=== PATIENT | female | born 1960 | race African-American/Black ===

== ENCOUNTER → 2016-05-20 | Outpatient (CLI) | payer OTHER ==
[~2016-05-20] MED LIST: ADVAIR HFA 230M12 GM INH; ALPRAZOLAM1 M1 PO; ALPRAZOLAM1 MG PO; BENZONATATE100 MG PO; CARBAMAZEPINE200 M2 PO; COLACE100 MG PO; COZAAR 50 MG TA50 M2 PO; COZAAR100 MG PO; DUONEB 0.5 MG-33 ML INH; FIORICET 50-301 EACH PO; FIORICET 50-321 EACH PO; GEODON PO; GEODON80 MG PO; LAMICTAL XR100 MG PO; LEVAQUIN 500 M500 M4 PO; LISINOPRIL10 MG PO; LORTAB PO; MIRALAX255 GM PO; MOM OR; NORCO 10-325 T1 EACH PO; NORCO 5-325 TA1 EACH PO; NORVASC10 MG PO; OMEPRAZOLE20 MG PO; PREDNISONE 10 M10 MG PO; PREDNISONE50 MG PO; PRILOSEC 20 MG20 MG PO; PRINIVIL5 MG PO; RAZADYNE12 MG; RISPERDAL0.5 MG PO; SEROQUEL XR 20200 MG PO; SEROQUEL XR400 MG PO; SEROQUEL200 MG PO; SPIRIVA INH; VENTOLIN HFA 1818 GM INH; XANAX 0.5 MG0.5 MG PO; XOPENEX HF1 UDINHALE INH; ZPAK PO
== END ==
LOC: NUC 09:28
DX: R06.00 Dyspnea, unspecified (principal); J44.9 Chronic obstructive pulmonary disease, unspecified

== ENCOUNTER → 2016-07-22 | Outpatient (CLI) | payer OTHER ==
[~2016-07-22] VITALS: Ht 162.6 cm; Wt 60.4 kg
[~2016-07-22] MED LIST changes: +ALLERGY & CONG1 EACH PO; +FLEXERIL PO; +HYDRALAZINE 2525 MG PO; +LAMICTAL100 MG PO; +OMEPRAZOLE20 M2 PO; +ONDANSETRON HCL4 M2 PO; +RISPERDAL 3 MG T3 MG PO; +SPIRIVA18 MCG INH; +TYLENOL325 MG PO
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
[2016-07-22 14:08] VITALS: BP 124/92
== END ==
LOC: PAIN 07:14
DX: M47.817 Spondylosis without myelopathy or radiculopathy, lumbosacral region (principal); M25.859 Other specified joint disorders, unspecified hip; G89.29 Other chronic pain; J44.9 Chronic obstructive pulmonary disease, unspecified; Z87.891 Personal history of nicotine dependence; K21.9 Gastro-esophageal reflux disease without esophagitis; F32.9 Major depressive disorder, single episode, unspecified

== ENCOUNTER → 2016-07-29 | Outpatient (CLI) | payer OTHER ==
[~2016-07-29] VITALS: Ht 157.5 cm; Wt 62.1 kg
--- NOTE | ~2016-07-29 | HPC ---
[facility] [place] [address] PAIN MANAGEMENT CONSULTATION Name: JAMES LAMB Room #: REG CL Jessica#: [id number] Admission: 07/29/16 Attend Phys: Juan David Porter DO Discharge: Date of : 56 Report #: [id number] THIS REPORT FOR: //name// CC: Jenna Porter The patient is a 56-year-old female seen in consultation on 07/22/2016, diagnosed with sacroiliac dysfunction, lumbosacral spondylosis, chronic pain, neuropathic pain component. We sought authorization for bilateral SI joint injections under fluoroscopy. The patient presents to pain clinic today for prior authorized injection. She notes pain continues across the low back. She has continued to do physical therapy for pulmonary rehab. I had written a physical therapy prescription for the patient to give to her current PT asking to include home exercise regimen for SI stabilization core strength. PROCEDURE: Bilateral SI joint injection under fluoroscopy. PROCEDURE NOTE: After written and informed consent was obtained including risk of infection, nerve trauma, increased pain and weakness, the patient wishes to proceed. The patient was taken to the fluoroscopy suite, placed in the prone position. The sacroiliac joint was visualized using the C-arm, turned in an oblique fashion to align the joint. The skin overlying the area was cleansed with ChloraPrep. Skin wheal with Xylocaine was raised. A 22 gauge spinal needle was inserted into the inferior aspect of the joint. A low volume extension tubing was then attached to the needle after the stylet was removed. Negative aspiration was accomplished. 1 mL of Omnipaque was injected which showed spread within the SI joint. 40 mg triamcinolone plus 2 mL of 0.5% preservative-free bupivacaine was injected into the joint. Needle was removed. Attention was then turned to the contralateral joint which was treated in an identical fashion. After both needles were removed the prep was washed off. Two Band-Aids were applied over the puncture sites. The patient was allowed to ambulate to the recovery room, monitored for an appropriate period of time, discharged in good and stable condition. By: [id number] Juan David Porter DO /nt
[2016-07-29 10:37] VITALS: BP 135/96
== END | disposition home or self-care (01) ==
LOC: PAIN 07:12
DX: M53.3 Sacrococcygeal disorders, not elsewhere classified (principal); M47.897 Other spondylosis, lumbosacral region; G89.29 Other chronic pain; Z87.891 Personal history of nicotine dependence

== ENCOUNTER → 2016-08-26 | Outpatient (CLI) | payer OTHER ==
[~2016-08-26] VITALS: Ht 157.5 cm; Wt 60.9 kg
[~2016-08-26] MED LIST changes: +MOBIC7.5 MG PO
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
[2016-08-26 09:57] VITALS: BP 140/90
== END | disposition home or self-care (01) ==
LOC: PAIN 07:24
DX: M54.5 Low back pain (principal); J98.4 Other disorders of lung; M47.896 Other spondylosis, lumbar region; M53.3 Sacrococcygeal disorders, not elsewhere classified; G62.9 Polyneuropathy, unspecified

== ENCOUNTER → 2016-10-12 | Outpatient (CLI) | payer OTHER ==
[~2016-10-12] MED LIST changes: +ALENDRONATE SOD70 MG PO; +BENZTROPINE MES1 MG PO
== END ==
LOC: CAT 10-05 14:52
DX: R91.8 Other nonspecific abnormal finding of lung field (principal)

== ENCOUNTER 2016-10-14 19:02 | Inpatient (IN) | payer OTHER ==
[~2016-10-14] VITALS: Ht 157.5 cm; Wt 58.1 kg
--- NOTE | ~2016-10-14 | HC ---
[facility] [place] [address] CONSULTATION Name: JAMES LAMB Room #: 417-I ADM IN M.R.#: [id number] Admission: 10/14/16 Attend Phys: Donaldo Pantoja MD Discharge: Date of : 56 Report #: [id number] THIS REPORT FOR: //name// CC: Jenna Pantoja DATE OF SERVICE: 10/15/2016 GASTROENTEROLOGY CONSULTATION REASON FOR CONSULTATION: Acute colitis. BACKGROUND: The patient is a 56-year-old black female admitted through the emergency room with abdominal pain and hematochezia. She reports that with inability to have a bowel movement, on , she took magnesium citrate as she has sometimes required in the past. She subsequently developed severe diarrhea with multiple bowel movements throughout the day on and Monday with report of up to 30 stools. She noted blood in her stools, bright red in color on night. She developed abdominal pain up to 10 on a scale of 1-10, more prominent in her left lower quadrant. She does have a history of IBS, but no previous history of acute colitis. She does have a personal history of colon polyps and last underwent a colonoscopy at [facility] by Dr. Grady and reports that she was due for repeat colonoscopy possibly this year. Endoscopic report not currently available. PAST MEDICAL HISTORY: She has undergone previous hysterectomy and tubal ligation. She does have a history of hypertension, COPD, IBS, migraine headaches, anxiety, bipolar disorder, and hypertension. HOME MEDICATIONS: Cogentin 1 mg per day, alendronate one tablet each week, carbamazepine 200 mg p.o. q.i.d., amlodipine 10 mg per day, benzonatate 100 mg p.r.n. for cough, [place] p.r.n. pain, albuterol inhaler p.r.n., alprazolam 1 mg p.o. t.i.d., Fioricet one capsule p.r.n. migraine headaches, risperidone 3 mg per day, loratadine p.r.n., acetaminophen 650 mg p.o. q.8 hours, Zofran 4 mg p.o. q.8 hours, omeprazole 20 mg per day, hydralazine 50 mg per day, Lamictal 100 mg per day, Spiriva each day, and Flexeril 10 mg p.o. t.i.d. ALLERGIES: ASPIRIN, CODEINE, PHENYTOIN, and ZIPRASIDONE. SOCIAL HISTORY: She does not currently smoke cigarettes. She does drink alcohol on special occasions. REVIEW OF SYSTEMS: She has had no documented fevers or chills. She has not noted increased coughing, wheezing, or shortness of breath. She denied chest pain. She denied nausea or vomiting. GI as per HPI. She has had no increase [address] [address] CONSULTATION Name: JAMES LAMB Room #: 417-I ADM IN M.R.#: [id number] Admission: 10/14/16 Attend Phys: Donaldo Pantoja MD Discharge: Date of : 56 Report #: [id number] in weakness or joint pain. PHYSICAL EXAMINATION: GENERAL: She appears alert and in no acute distress at rest and easily conversant. VITAL SIGNS: Afebrile, blood pressure 124/80, and pulse 114. HEENT: No scleral icterus. NECK: Supple without lymphadenopathy. HEART: Heart rate tachycardic, but regular. LUNGS: Clear to auscultation. ABDOMEN: Soft, nondistended with no obvious hepatosplenomegaly or palpable mass. She does have [id number] tenderness to palpation, most prominent in the left lower quadrant without obvious rebound. Bowel sounds are active. EXTREMITIES: She has no significant peripheral edema. IV was placed on right neck as peripheral venous access has been difficult. LABORATORY STUDIES: On 10/14/2016, white blood cell count 21.6, hemoglobin 15.0 with 81 segs, 1 band, and 10 lymphs. Initial metabolic profile included BUN 18, creatinine 0.7, and glucose 126. Lactic acid on 10/14/2016 was normal at 0.9. Alkaline phosphatase was mildly elevated at [address] of the abdomen and pelvis revealed findings compatible with colitis involving the distal transverse colon down to the rectum more prominent involving the splenic flexure and proximal descending colon. She did have moderate plaquing of the aorta and iliac without aneurysm. IMPRESSION: 1. Acute colitis, most likely ischemic, less likely infectious, clinically improving. 2. Hematochezia. 3. Personal history of colon polyps. 4. Chronic constipation. 5. Leukocytosis. RECOMMENDATIONS: 1. Clear liquids. 2. Note that she has been placed on IV ciprofloxacin and metronidazole, which is very reasonable. 3. If continued clinical improvement, diet may be slowly advanced. 4. Repeat colonoscopy may be scheduled in 4-6 weeks. <ELECTRONICALLY SIGNED> By: Js Villa MD 10/16/16 0745 0914 1135 Js Villa MD /nt
--- NOTE | ~2016-10-14 | S ---
[facility] [place] [address] SURGICAL PATH RPT PROCEDURE Name: ROSAAN ALICEADIANE RONY Room #: 548-I DIS IN M.R.#: [id number] Admission: 10/14/16 Date of : 56 Discharge: 10/19/16 Report #: [id number] Path Case #: [id number] PATHOLOGY REPORT COLLECTION DATE: 10/18/2016 RECEIVED DATE: 10/18/2016 SUBMITTING PHYS: Dr. Juan Zazueta OTHER PHYS: Dr. Jose Raul Olea SPECIMEN(S) RECEIVED: A.Bx at splenic flexure to distal sigmoid B.Bx of polyp at sigmoid * * * * * * * * * * * * FINAL DIAGNOSIS: A. "Bx at splenic flexure to distal sigmoid," biopsy: - Colonic mucosa with acute and chronic inflammation, necrosis/ulceration, lamina propria edema/early fibrosis, and focal gland atrophy; no dysplasia seen. (see comment) B. "Bx of polyp at sigmoid," biopsy: - Hyperplastic polyp. COMMENT: Within specimen A, the pattern of inflammation, while non-specific, is suggestive of ischemic colitis. Infectious colitis is also a histologic consideration. Clinical and endoscopic correlation is required. (KATHIW:; 10/20/2016) PATHOLOGIST: Mary Lennon M.D. REPORT ELECTRONICALLY SIGNED BY: Mary Lennon M.D. DATE/TIME: 10/20/2016 23:07 * * * * * * * * * * * * GROSS PATHOLOGY: A. Received in formalin labeled "Diane Lamb, BX at splenic flexure to distal sigmoid," are 7 segments of oates soft tissue measuring 2.6 x 0.2 x 0.2 cm in aggregate dimensions and ranging from 0.1 to 0.5 cm in maximum dimension. The specimen is submitted entirely in cassette A1. B. Received in formalin labeled "Diane Lamb BX of sigmoid polyp," are 2 segments of oates soft tissue measuring 0.4 x 0.2 x 0.2 cm in aggregate dimensions and ranging from 0.1 to 0.3 cm in maximum dimension. The specimen is submitted entirely in cassette B1. (ROBERT; 10/19/2016) [address] [place] [address] SURGICAL PATH RPT PROCEDURE Name: DIANE LAMB Room #: 548-I DIS IN M.R.#: [id number] Admission: 10/14/16 Date of : 56 Discharge: 10/19/16 Report #: [id number] Path Case #: [id number] CLINICAL HISTORY: Colitis, abdominal pain INITIAL CPT CODE(S): A; 16882 B; 74663 Professional services performed by [facility] at [facility] [address] [place] [address] Technical services performed by [facility] at [address] [place] [address]., [address], [place] [address]. [facility] [address] [place] [id number] PHONE: [phone] DIRECTOR: Gerard Hutson M.D. * * * END OF REPORT * * *
--- NOTE | ~2016-10-14 | HC ---
[facility] [place] [address] CONSULTATION Name: ROSANA AGUILARPEACENicanorJAMES RONY Room #: 548-I ADM IN M.R.#: [id number] Admission: 10/14/16 Attend Phys: Jose Raul Mayfield DO Discharge: Date of : 56 Report #: [id number] THIS REPORT FOR: //name// CC: Jenna Pantoja PRIMARY CARE PHYSICIAN: Dr. Jenna Olea. Referring physician: Matti Ramires DO HISTORY OF PRESENT ILLNESS: The patient is a 56-year-old -Bul[place] female who presents to the emergency room with a hematochezia. Since admission, the patient was found to be hypoxic. A pulmonary consultation was requested. The patient has known COPD. She is normally followed longitudinally by Dr. Garcia. In fact, she has a followup appointment with him next week. She was in her usual state of health until few nights ago when she started develop lower abdominal cramping pain. Symptom progressively worsened. Yesterday evening, she noted bright red blood per rectum. She presented to the emergency room. Otherwise, denies any fever, night sweats or chills, recent productive cough or chest pains. PAST MEDICAL HISTORY: Remarkable for COPD, hypertension, migraine headaches, anxiety disorder, seizure disorder, hypertension, hyperlipidemia, bipolar disorder, and history of tobacco use, having quit more than a year ago. PAST SURGICAL HISTORY: Include bilateral tubal ligation, hysterectomy. ALLERGIES: ASPIRIN, reactions unspecified, CODEINE causes rash, DILANTIN causes rash, ZIPRASIDONE (GEODON), reactions not known. HOME MEDICATIONS: Include Cogentin, carbamazepine, Norvasc, Vershire, Ventolin HFA, Risperdal, loratadine, Zofran, hydralazine, omeprazole, Lamictal, Spiriva, Advair, and Flexeril. FAMILY HISTORY: Noncontributory. SOCIAL HISTORY: She has smoked, but quit 1 year ago. She denies any alcohol use. REVIEW OF SYSTEMS: As mentioned above, otherwise 10-point system review negative. PHYSICAL EXAMINATION: [facility] [address] [place] [address] CONSULTATION Name: JAMES LAMB Room #: 548-I [facility].#: [id number] Admission: 10/14/16 Attend Phys: Jose Raul Mayfield DO Discharge: Date of : 56 Report #: [id number] GENERAL: She is awake, alert, in no apparent distress. VITAL SIGNS: Temperature is 98 degrees Fahrenheit, pulse is 120, respiratory rate is 18, blood pressure 124/80 mmHg, saturation is 97%. HEENT: Normocephalic and atraumatic. NECK: Supple, without any lymphadenopathy or thyromegaly. CHEST: Breath sounds are clear without any rales or wheezes. CARDIOVASCULAR: Normal S1, S2. There are no murmurs or gallop. There is no JVD. There is no carotid bruit. Pulses are 2+/4+ bilaterally. ABDOMEN: Moderately distended, tender in the left lower quadrant, no masses felt. No rebound. GENITOURINARY: Deferred. RECTAL: Deferred. EXTREMITIES: There is no edema, cyanosis or clubbing. LABORATORY DATA: CT abdomen and pelvis revealed colitis involving the distal transverse colon to the rectum. CT chest revealed diffuse bullous changes bilaterally. Solitary nodule seen in the right upper lobe and middle lobe which appears slightly bigger in 2014. Electrolytes are normal, bicarbonate 22. WBC 21,400. Albumin 3.4. IMPRESSION: 1. Progressive hypoxia in a 56 year -Bul[place] female secondary to chronic obstructive pulmonary disease. She may have sepsis which may be affecting respiratory system. No evidence of obvious exacerbation, no pneumonia at this time. 2. Hematochezia, abdominal pain, due to diffuse colitis. Etiology uncertain by possibly ischemic versus infection. 3. Seizure disorder. 4. Hypertension. 5. Gastroesophageal reflux disease. RECOMMENDATION: We will resume home bronchodilator therapy. For now in the hospital, we will use nebulized Atrovent. Wean O2 for saturation 90%. DVT and GI prophylaxis has been addressed. Thank you for this consultation. <ELECTRONICALLY SIGNED> By: Nawaf Weller MD 10/17/16 1151 1436 1634 Nawaf Weller MD /nt
[~2016-10-14 19:02] MED LIST changes: -ALENDRONATE SOD70 MG PO; -BENZTROPINE MES1 MG PO
[2016-10-14 19:35] VITALS: BP 141/90
[2016-10-14] MEDS ORDERED: BENZTROPINE MES1 MG PO (19:47)
[2016-10-14] MEDS ORDERED: ALENDRONATE SOD70 MG PO (19:48)
[2016-10-14 20:35] LABS: URINE BILIRUBIN 2+ (Negative); URINE BLOOD TRACE (Negative); URINE COLOR YELLOW; URINE GLUCOSE-RANDOM* NEGATIVE (Negative); URINE KETONES 1+ (Negative); URINE NITRITE NEGATIVE (Negative); URINE PROTEIN (DIPSTICK) 1+ (Negative); URINE SPECIFIC GRAVITY 1.025 (1.003-1.035); URINE UROBILINOGEN 0.2 E.U./dl (0.2-1.0)
[2016-10-14 20:37] LABS: ICTOTEST (BILI CONFIRMATORY) Negative (Negative)
[2016-10-14 20:46] LABS: BACTERIA 1-9 Few /HPF (None Seen); CASTS None Seen /LPF (None Seen); CRYSTALS None Seen /LPF (None Seen); SQUAMOUS 0-3 Few /LPF (0-3); URINE RBC 0-2 Rare /HPF (0-2); URINE WBC 0-5 Rare /HPF (0-5)
[2016-10-14 21:25] LABS: HEMATOCRIT 44.3 % (37.0-47.0); MCH 30.8 pg (26.0-34.0); MCV 90.6 fL (80.0-100.0); PLATELET COUNT 349 thou/uL (150-400); RBC 4.89 mil/uL (4.20-5.00); RDW 13.6 % (10.5-14.5); WBC 21.6 thou/uL (4.0-11.0)
[2016-10-14 21:29] LABS: MANUAL DIFF YES
[2016-10-14 21:34] LABS: CALCIUM 9.4 mg/dL (8.5-10.1); CREATININE 0.7 mg/dL (0.6-1.0); POTASSIUM 4.2 mmol/L (3.5-5.1)
[2016-10-14 21:38] LABS: ALBUMIN 3.4 g/dL (3.4-5.0); DIRECT BILIRUBIN 0.2 mg/dL (<0.1-0.3); TOTAL BILIRUBIN 0.5 mg/dL (<0.1-1.0)
[2016-10-14 21:55] LABS: ABSOLUTE NEUTROPHILS 17.7 thou/uL (1.4-8.2); TOTAL CELL COUNT 100
[2016-10-14 21:56] LABS: ANISOCYTOSIS 1+
[2016-10-15 00:49] VITALS: BP 168/83
[2016-10-15 01:24] VITALS: BP 132/90
[2016-10-15 04:05] VITALS: BP 108/75
[2016-10-15 05:16] LABS: HEMATOCRIT 41.2 % (37.0-47.0); HEMOGLOBIN 13.6 gm/dL (12.0-15.0); MCH 30.7 pg (26.0-34.0); MCHC 32.9 g/dL (28.0-37.0); MCV 93.1 fL (80.0-100.0); RBC 4.43 mil/uL (4.20-5.00); RDW 13.9 % (10.5-14.5); WBC 21.4 thou/uL (4.0-11.0)
[2016-10-15 05:26] LABS: CALCIUM 8.2 mg/dL (8.5-10.1); CREATININE 0.5 mg/dL (0.6-1.0); POTASSIUM 4.6 mmol/L (3.5-5.1)
[2016-10-15 08:00] VITALS: BP 124/80
[2016-10-15 16:00] VITALS: BP 132/84
[2016-10-15 20:00] VITALS: BP 139/93
[2016-10-16 04:45] VITALS: BP 132/86
[2016-10-16 07:55] VITALS: BP 130/76
[2016-10-16 09:30] LABS: HEMATOCRIT 37.6 % (37.0-47.0); HEMOGLOBIN 12.3 gm/dL (12.0-15.0); MCH 30.4 pg (26.0-34.0); MCHC 32.8 g/dL (28.0-37.0); MCV 92.9 fL (80.0-100.0); RBC 4.05 mil/uL (4.20-5.00); RDW 13.9 % (10.5-14.5); WBC 15.6 thou/uL (4.0-11.0)
[2016-10-16 15:58] VITALS: BP 131/80
[2016-10-16 19:26] VITALS: BP 140/84
[2016-10-17 03:12] VITALS: BP 151/95
[2016-10-17 06:01] LABS: HEMATOCRIT 33.8 % (37.0-47.0); HEMOGLOBIN 11.1 gm/dL (12.0-15.0); MCH 30.6 pg (26.0-34.0); MCHC 32.8 g/dL (28.0-37.0); MCV 93.3 fL (80.0-100.0); PLATELET COUNT 281 thou/uL (150-400); RBC 3.63 mil/uL (4.20-5.00); RDW 13.4 % (10.5-14.5); WBC 11.4 thou/uL (4.0-11.0)
[2016-10-17 06:03] LABS: MANUAL DIFF YES
[2016-10-17 06:19] LABS: CALCIUM 7.6 mg/dL (8.5-10.1); CREATININE 0.5 mg/dL (0.6-1.0); POTASSIUM 3.3 mmol/L (3.5-5.1)
[2016-10-17 07:12] VITALS: BP 146/92
[2016-10-17 08:36] LABS: TOTAL CELL COUNT 100
[2016-10-17 08:37] LABS: ANISOCYTOSIS SLIGHT
[2016-10-17 12:20] VITALS: BP 122/78
[2016-10-17 20:00] VITALS: BP 142/90
[2016-10-18 04:00] VITALS: BP 151/83
[2016-10-18 07:52] LABS: ABSOLUTE NEUTROPHILS 6.8 thou/uL (1.4-8.2); BASOPHILS 0.4 % (0.0-2.0); EOSINOPHILS 1.2 % (0.0-3.0); HEMOGLOBIN 11.7 gm/dL (12.0-15.0); LYMPHOCYTES 18.3 % (24.0-44.0); MCH 30.6 pg (26.0-34.0); MCHC 33.4 g/dL (28.0-37.0); MCV 91.7 fL (80.0-100.0); PLATELET COUNT 305 thou/uL (150-400); POLYS 68.1 % (36.0-66.0); RBC 3.82 mil/uL (4.20-5.00); RDW 13.3 % (10.5-14.5)
[2016-10-18 07:54] LABS: MANUAL DIFF NO
[2016-10-18 08:00] LABS: ANION GAP 8 mmol/L (7-16); BUN < 1 mg/dL (7-18); CALCIUM 7.8 mg/dL (8.5-10.1); CHLORIDE 102 mmol/L (98-107); CO2 29 mmol/L (21-32); CREATININE 0.5 mg/dL (0.6-1.0); GLUCOSE 93 mg/dL (74-106); POTASSIUM 3.3 mmol/L (3.5-5.1); SODIUM 139 mmol/L (136-145)
[2016-10-18 08:23] VITALS: BP 110/61
[2016-10-18 16:20] VITALS: BP 122/58
[2016-10-18 20:00] VITALS: BP 124/62
[2016-10-19 04:00] VITALS: BP 147/95
[2016-10-19 07:51] VITALS: BP 139/93
[2016-10-19] MEDS ORDERED: NORCO 10-325 T1 EACH PO (10:02)
[2016-10-19] MEDS ORDERED: LEVAQUIN 500 M500 M2 PO (10:07)
[2016-10-19] MEDS ORDERED: FLAGYL500 MG PO (10:07)
[2016-10-19 12:28] VITALS: BP 139/93
== END 2016-10-19 14:55 | disposition home or self-care (01) | DRG 871 ==
LOC: ER 19:02 → 5S 23:49 → EROBS 23:49 → 4E 23:49 → 5S 10-17 11:11
PROVIDERS: Emergency Medicine; Family Medicine; Internal Medicine Geriatric Medicine; Nurse Practitioner Family; Specialist
PROC: 0DBL8ZX Excision of Transverse Colon, Via Natural or Artificial Opening Endoscopic, Diagnostic (ICD-10-PCS; principal; 2016-10-18)
PROC: 0DBN8ZX Excision of Sigmoid Colon, Via Natural or Artificial Opening Endoscopic, Diagnostic (ICD-10-PCS; principal; 2016-10-18)
DX: A41.9 Sepsis, unspecified organism (principal); K55.039 Acute (reversible) ischemia of large intestine, extent unspecified; J96.01 Acute respiratory failure with hypoxia; K92.2 Gastrointestinal hemorrhage, unspecified; N39.0 Urinary tract infection, site not specified; I10 Essential (primary) hypertension; J44.9 Chronic obstructive pulmonary disease, unspecified; K52.9 Noninfective gastroenteritis and colitis, unspecified; G43.909 Migraine, unspecified, not intractable, without status migrainosus; F31.9 Bipolar disorder, unspecified; F41.9 Anxiety disorder, unspecified; K59.09 Other constipation; G40.909 Epilepsy, unspecified, not intractable, without status epilepticus; E78.5 Hyperlipidemia, unspecified; K21.9 Gastro-esophageal reflux disease without esophagitis; K64.8 Other hemorrhoids; K63.5 Polyp of colon; Z87.891 Personal history of nicotine dependence; Z79.899 Other long term (current) drug therapy; Z88.6 Allergy status to analgesic agent; Z88.8 Allergy status to other drugs, medicaments and biological substances; Z90.710 Acquired absence of both cervix and uterus
CPT/HCPCS: 10084; 10086; 62110; 62900; 70005

== ENCOUNTER → 2016-11-25 | Outpatient (CLI) | payer OTHER ==
[~2016-11-25] VITALS: Ht 157.5 cm; Wt 56.5 kg
[~2016-11-25] MED LIST changes: +ALENDRONATE SOD70 MG PO; +BENZTROPINE MES1 MG PO; +FLAGYL500 MG PO; +HYDROCODONE-APA1 TA1 PO; +LEVAQUIN 500 M500 M2 PO
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
[2016-11-25 10:37] VITALS: BP 118/85
== END ==
LOC: PAIN 07:16
DX: M47.816 Spondylosis without myelopathy or radiculopathy, lumbar region (principal); Z87.891 Personal history of nicotine dependence

== ENCOUNTER → 2016-12-02 | Outpatient (CLI) | payer OTHER ==
[~2016-12-02] VITALS: Ht 157.5 cm; Wt 58.1 kg
--- NOTE | ~2016-12-02 | HPC ---
[facility] [place] [address] PAIN MANAGEMENT CONSULTATION Name: JAMES LAMB Room #: REG CLKesha Lopez#: [id number] Admission: 12/02/16 Attend Phys: Juan David Porter DO Discharge: Date of : 56 Report #: [id number] THIS REPORT FOR: //name// CC: Jenna Porter The patient is a pleasant 56-year-old female being treated for lumbar spondylosis, component of axial back pain. She was last seen in pain clinic 11/25/2016, started the patient on hydrocodone 7.5/325, limit 60 tablets for 30 days, she has taken this on a very conservative schedule, 1 or 2 a day. Presents to pain clinic today for prior authorized left facet joint injections under fluoroscopy, L3-L4, L4-L5 and L5-S1. ASSESSMENT: Symptomatic lumbar spondylosis. PROCEDURE: Lumbar injections under fluoroscopy, left x3. DESCRIPTION OF PROCEDURE: After written informed consent was obtained, the patient taken to the fluoroscopy suite, placed in prone position. After sterile prep and drape, skin wheal with Xylocaine was raised. Three 25-gauge spinal needles were placed to contact the inferior aspect of the left L3-L4, L4-L5 and L5-S1 facets. AP and lateral projections showed good needle placement. A 30 mg triamcinolone plus 1 mL of 0.5% preservative-free bupivacaine was injected at each site. All 3 needles removed. The area was cleansed, Band-Aids applied. The patient monitored for an appropriate period of time, discharged in good and stable condition. Fluoroscopy time was under 15 seconds. Follow up in about 4 weeks to reevaluate, have the patient bring back her prescription for a pill count. <ELECTRONICALLY SIGNED> By: Juan David Porter DO 12/05/16 0908 1406 1523 Juan David Porter DO /nt
[2016-12-02 13:28] VITALS: BP 137/98
== END | disposition home or self-care (01) ==
LOC: PAIN 12-01 12:25
DX: M47.816 Spondylosis without myelopathy or radiculopathy, lumbar region (principal); Z87.891 Personal history of nicotine dependence

== ENCOUNTER → 2016-12-23 | Outpatient (CLI) | payer OTHER ==
[~2016-12-23] VITALS: Ht 157.5 cm; Wt 55.8 kg
[~2016-12-23] MED LIST changes: +HYDROCHLOROTH12.5 M1 PO; +LINZESS145 MCG PO; +LOSARTAN POTAS100 MG PO
--- NOTE | ~2016-12-23 | HPC ---
[facility] [place] [address] PAIN MANAGEMENT CONSULTATION Name: JAMES LAMB Room #: REG BERTRAM Lopez#: [id number] Admission: 12/23/16 Attend Phys: Juan David Porter DO Discharge: Date of : 56 Report #: [id number] THIS REPORT FOR: //name// CC: Jenna Porter HISTORY OF PRESENT ILLNESS: The patient is a 56-year-old female being treated for lumbar radiculopathy, lumbar spondylosis. She was last seen in pain clinic on 12/02/2016. We did 3 left facet joint injections at L3-L4, L4-L5 and L5-S1. Referred the patient to physical therapy. She returns to the pain clinic today noting that those injections afforded very good yet transient relief. The patient notes specifically 50% relief with improved functional status, though after 10 days the effect of the local anesthetic and steroid wore off. PHYSICAL EXAMINATION: Shows 56-year-old female, BMI is 22.5 kilograms per meter squared. Blood pressure is elevated today at 134/100, pulse 109, respirations 16. Rises from chair using armrest. Diffuse tenderness across the low back. Pain is exacerbated with rotation and side bending. Lower extremity strength, however, is generally symmetric. With ongoing axial back pain, short term relief following facet joint injections, pain worse left than right but present bilaterally, we had a long discussion with the patient today about therapeutic option. Ultimately, I believe her pain is simply coming from axial back pain, component of DJD, lumbar spondylosis. We will plan on continuing hydrocodone /325, she has a prescription for 60 tablets generated on 11/25/2016 it is not asking for normal. We will seek authorization for medial branch dorsal rami diagnostic blocks bilateral for these 3 facet joints, which will mean 4 medial branch dorsal rami blocks on either side, L2, L3, L4 and L5. Diagnostic block, the patient understands will by definition afford short term i.e., several hours relief. If this does afford good relief, we can move forward with RFL. We will do bilateral diagnostic blocks, but only proceed with the unilateral RFL in the sequential pattern, likely left first and then right if indicated. Thank you for allowing me to participate in the patient's care. Again, we will seek authorization for medial branch dorsal rami diagnostic blocks covering bilateral L3-L4, L4-L5 and L5-S1 facet joints due to axial back pain, lumbar spondylosis, transient relief following left facet joint injections under fluoroscopy, minimal relief following SI joint injections, pain exacerbated with rotation and side bending. <ELECTRONICALLY SIGNED> By: Juan David Porter DO 12/29/16 0847 1226 2055 Juan David Porter DO /nt
[2016-12-23 13:21] VITALS: BP 134/100
== END | disposition home or self-care (01) ==
LOC: PAIN 12-22 14:13
DX: M47.896 Other spondylosis, lumbar region (principal); Z98.890 Other specified postprocedural states; Z87.891 Personal history of nicotine dependence; Z88.6 Allergy status to analgesic agent; Z88.2 Allergy status to sulfonamides; Z88.8 Allergy status to other drugs, medicaments and biological substances; Z79.899 Other long term (current) drug therapy

== ENCOUNTER → 2017-01-10 | Outpatient (CLI) | payer OTHER ==
[~2017-01-10] VITALS: Ht 157.5 cm; Wt 55.8 kg
--- NOTE | ~2017-01-10 | S ---
[facility] [place] [address] SURGICAL PATH RPT PROCEDURE Name: DIANE LAMB Room #: REG CLKesha Lopez#: [id number] Admission: 01/10/17 Date of : 56 Discharge: Report #: [id number] Path Case #: [id number] PATHOLOGY REPORT COLLECTION DATE: 01/10/2017 RECEIVED DATE: 01/11/2017 SUBMITTING PHYS: Dr. Juan Zazueta OTHER PHYS: Dr. Jenna Olea SPECIMEN(S) RECEIVED: A.Small bowell B.Antrum * * * * * * * * * * * * FINAL DIAGNOSIS: A. Small intestinal mucosa, "small bowel biopsy": - No obvious diagnostic changes. - There is no evidence of acute cryptitis, granulomas, adenomatous change, sprue-like changes, or malignancy. B. Gastric biopsy, antrum: - Mild chronic reactive gastropathy. - The immunoperoxidase stains for Helicobacter pylori is negative. (SHA:mgr; 01/12/2017) PATHOLOGIST: Manuel Aparicio M.D. REPORT ELECTRONICALLY SIGNED BY: Manuel Aparicio M.D. DATE/TIME: 01/12/2017 12:49 * * * * * * * * * * * * GROSS PATHOLOGY: A. Received in formalin labeled "Diane Amos, small bowel r/o celiac," are 2 segments of oates soft tissue measuring 0.6 x 0.2 x 0.2 cm in aggregate dimensions and ranging from 0.3 to 0.3 cm in maximum dimension. The specimen is submitted entirely in cassette A1. B. Received in formalin labeled "Diane Amos, antrum r/o H. pylori," are 3 segments of oates soft tissue measuring 1.1 x 0.6 x 0.3 cm in aggregate dimensions and ranging from 0.3 to 0.5 cm in maximum dimension. The specimen is submitted entirely in cassette B1. (TSD; 01/11/2017) CLINICAL HISTORY: Pre-OP DX: Nausea, dysphagia Post-OP DX: Facial hernia, Schatzki ring INITIAL CPT CODE(S): [address] [address] SURGICAL PATH RPT PROCEDURE Name: DIANE LAMB RONY Room #: REG CLI MDiego.#: [id number] Admission: 01/10/17 Date of : 56 Discharge: Report #: [id number] Path Case #: [id number]; [id number] B; [id number], [id number] Professional services performed by [facility] at [address] , [place] [address] Technical services performed by [facility] at [address] [place] [address], [facility] [address] [address]. [facility] [address] [address] PHONE: [phone] DIRECTOR: Gerard Hutson M.D. * * * END OF REPORT * * *
== END | disposition home or self-care (01) ==
LOC: GI 06:03
DX: M47.22 Other spondylosis with radiculopathy, cervical region (principal); M79.1 Myalgia; M54.2 Cervicalgia; G89.29 Other chronic pain; Z88.2 Allergy status to sulfonamides; Z88.6 Allergy status to analgesic agent; Z98.890 Other specified postprocedural states; Z88.0 Allergy status to penicillin; Z88.8 Allergy status to other drugs, medicaments and biological substances
CPT/HCPCS: 62110; 62900

== ENCOUNTER → 2017-01-20 | Outpatient (CLI) | payer OTHER ==
[~2017-01-20] VITALS: Ht 157.5 cm; Wt 58.9 kg
[~2017-01-20] MED LIST changes: +NORCO 7.5-3251 EACH PO
--- NOTE | ~2017-01-20 | HPC ---
[facility] [address] [place] [address] PAIN MANAGEMENT CONSULTATION Name: JAMES LAMB Room #: REG BERTRAM Lopez#: [id number] Admission: 01/20/17 Attend Phys: Juan David Porter DO Discharge: Date of : 56 Report #: [id number] THIS REPORT FOR: //name// CC: Jenna Porter DATE OF SERVICE: 01/20/2017 DATE OF SERVICE: 01/20/2017 HISTORY OF PRESENT ILLNESS: The patient is a 56-year-old female last seen in the pain clinic on 12/23/2016. I had prior done left facet joint injections, L3-L4, L4-L5 and L5-S1 on 12/02/2016. She had 50% overall improvement of baseline pain. Last visit, we elected to move forward with medial branch dorsal rami diagnostic block and consideration of radiofrequency neurolysis. She returns to pain clinic today. I am pleased to note that she is doing pushups, crunches and situps. She notes that with increasing physical activity and core strengthening, her pain seems to be better controlled. She still rates it an 8 on VAS, but feels that she would like to postpone further interventional therapy. PHYSICAL EXAMINATION: Shows a 56-year-old female whose BMI is 23.7 kilograms per meter squared. Blood pressure modestly elevated 143/90, pulse 107, respirations 16. Alert and oriented to person, place and time, judged to be a reasonable historian. Rises from chair using armrest. Gait is tandem. Lumbar flexion is modestly limited, pain with side bending and rotation, but patient notes that overall it seems to be improved. Lower extremity strength is symmetric. MEDICATIONS: The patient continues to use hydrocodone 7.5/325 p.r.n., Linzess for opioid-induced constipation. She is on multiple central acting agents including Lamictal, Cogentin, hydralazine, Risperdal, Fioricet for headaches, Xanax for anxiety, carbamazepine. ASSESSMENT: Lumbar spondylosis, lumbosacral spondylosis, axial back pain, component of lumbar radiculopathy requiring high risk complex medication management. RECOMMENDATIONS: After discussion with the patient today, we elected to encourage continued core strengthening. I did renew hydrocodone 7.5/325 one tablet 2-3 times a day, limit 75 tablets for 30 days. Follow up as needed. <ELECTRONICALLY SIGNED> By: Juan David Porter DO 01/23/17 1014 1506 0804 Juan David Porter DO /nt
[2017-01-20 10:35] VITALS: BP 143/90
== END | disposition home or self-care (01) ==
LOC: PAIN 07:16
DX: M47.26 Other spondylosis with radiculopathy, lumbar region (principal); M47.27 Other spondylosis with radiculopathy, lumbosacral region; M54.9 Dorsalgia, unspecified; Z79.891 Long term (current) use of opiate analgesic; F41.8 Other specified anxiety disorders; G43.909 Migraine, unspecified, not intractable, without status migrainosus; Z87.891 Personal history of nicotine dependence; Z79.899 Other long term (current) drug therapy

== ENCOUNTER → 2017-02-10 | Outpatient (CLI) | payer OTHER | LOC: CAT 01-25 08:19 | DX: R91.1 Solitary pulmonary nodule (principal) ==

== ENCOUNTER → 2017-02-17 | Outpatient (CLI) | payer OTHER ==
[~2017-02-17] VITALS: Ht 157.5 cm; Wt 58.1 kg
--- NOTE | ~2017-02-17 | HPC ---
[facility] [address] [address] PAIN MANAGEMENT CONSULTATION Name: JAMES LAMB Room #: REG BERTRAM Lopez#: [id number] Admission: 02/17/17 Attend Phys: Juan David Porter DO Discharge: Date of : 56 Report #: [id number] THIS REPORT FOR: //name// CC: Jenna Porter HISTORY OF PRESENT ILLNESS: The patient is a 56-year-old female being treated for lumbar spondylosis, lumbosacral spondylosis and axial back pain requiring high risk complex medication management. Last seen in the pain clinic on 01/20/2017, continued hydrocodone 7.5/325 one tablet 2-3 times a day, Linzess for opioid-induced constipation, referred to physical therapy. The patient returns to pain clinic today noting low back remains problematic. She is doing situps, pushups and some strength exercises. She is walking daily. Does steps at home. Rates the pain as 7 on a VAS. Notes it has been little worse recently with changes in weather. She denies any bowel or bladder continence changes, denies cognitive changes secondary to opiates. Denies daytime somnolence. We reviewed the fact that opiate medications are being used to provide analgesia adequate to support activities of daily living, not attempting to achieve a specific pain score on the 0-10 Visual Analog Scale. The current opiate medications are providing sufficient analgesia to allow the patient to participate in activities of daily living. The patient is not exhibiting any aberrant behavior suggestive of drug diversion. The patient is not having any adverse reactions to medications. The patient is not suffering from daytime somnolence or mental acuity changes. The patient is managing opiate-induced constipation with appropriate xvyo-rpt-iiizvdv agents and dietary considerations. The patient was counseled on concern for caution with operating a motor vehicle while using opiate medications. A physical exam was performed and the patient's functional status was evaluated. All patients with back pain were advised against the bed rest greater than 4 days and were advised to return to normal activities. Pain score assessment was noted and the treatment plan was reviewed with the patient. All current medications, both prescribed and OTC were reviewed and reconciled on the electronic medical record. Tobacco screening was accomplished and smoking cessation was advised when indicated. BMI was noted and diet/exercise modification was recommended for all patients following outside normal parameters. I reviewed with the patient today their responsibilities to safeguard prescription medications, reviewed their responsibility to utilize medications only as prescribed by the physician. They are to seek and receive pain medications only from 1 physician group ( [facility]). They are to use 1 pharmacy and keep the clinic informed if they change pharmacies. Their [address] [address] PAIN MANAGEMENT CONSULTATION Name: JAMES LAMB Room #: REG BERTRAM Lopez#: [id number] Admission: 02/17/17 Attend Phys: Juan David Porter DO Discharge: Date of : 56 Report #: [id number] responsibilities include making followup visits in a timely fashion and to avoid abrupt discontinuation of medication usage. Their responsibilities further include bringing their medications (bottles from the pharmacy with residual pills) to the visit for possible confirmation of pill counts and the patient understands it is their responsibility to submit to random drug screens to ensure both that the medications prescribed are present, and that no other controlled substances are present. All prescriptions provided today were generated electronically. ASSESSMENT AND PLAN: Symptomatic lumbosacral spondylosis, axial back pain requiring high risk complex medication management. The patient is stable on low dose hydrocodone 7.5/325 one tablet 2-3 times a day. I have taken the liberty of writing for 2 months of current medications. Follow up at that time, earlier if needed. <ELECTRONICALLY SIGNED> By: Juan David Porter DO 02/20/17 0929 1233 1434 Juan David Porter DO /nt
[2017-02-17 09:38] VITALS: BP 116/87
== END | disposition home or self-care (01) ==
LOC: PAIN 08:09
DX: M47.816 Spondylosis without myelopathy or radiculopathy, lumbar region (principal); M47.817 Spondylosis without myelopathy or radiculopathy, lumbosacral region; Z87.891 Personal history of nicotine dependence

== ENCOUNTER → 2017-04-14 | Outpatient (CLI) | payer OTHER ==
[~2017-04-14] VITALS: Ht 157.5 cm; Wt 56.7 kg
[~2017-04-14] MED LIST changes: +HYDROCODON-ACE1 EAC8 PO; +HYDROCODONE-ACE15 ML PO; +HYDROCODONE-AP1 EA11 PO; +HYDROXYZINE PAM50 MG PO
--- NOTE | ~2017-04-14 | HPC ---
[facility] [place] [address] PAIN MANAGEMENT CONSULTATION Name: JAMES LAMB Room #: REG BERTRAM Lopez#: [id number] Admission: 04/14/17 Attend Phys: Juan David Porter DO Discharge: Date of : 56 Report #: [id number] THIS REPORT FOR: //name// CC: Jenna Porter HISTORY OF PRESENT ILLNESS: The patient is a 56-year-old female, prior seen in the pain clinic on 02/17/2017, being treated for lumbar spondylosis, lumbosacral spondylosis, axial back pain requiring high-risk complex medication management. Last visit, we continued the patient on hydrocodone 7.5/325 one tablet 2-3 times a day, limit 75 tablets for 30 days. The patient returns to pain clinic today. She is doing well on current medication. She rates the pain 4 on a visual analog scale. Pain is primarily left low back. The patient's credit, she is continuing to do some core stabilization exercises, though they are fairly mild. She has significant COPD, emphysema, requires supplemental oxygen. She states she uses at a minimum 2 liters per minute at rest but 4 liters per minute when she is more active such as out going to the doctor. She notes the pain is exacerbated with bad weather, gets some relief with heat. Again, it is chronic aching sensation, low back, buttock. No significant radicular symptoms noted. PHYSICAL EXAMINATION: GENERAL: Shows 56-year-old female, BMI is 22.9 kilograms per meter squared. She is alert and oriented to person, place and time, judged to be a reasonable historian. VITAL SIGNS: Show blood pressure 124/81, pulse is little tachycardic at 116, respirations are 18 and oxygen saturation is 93% at 4 liters per minute at present. MUSCULOSKELETAL: Rises from the chair using armrest. Gait is antalgic. Diffuse tenderness across the low back. No discrete trigger points are noted. We reviewed the fact that opiate medications are being used to provide analgesia adequate to support activities of daily living, not attempting to achieve a specific pain score on the 0-10 Visual Analog Scale. The current opiate medications are providing sufficient analgesia to allow the patient to participate in activities of daily living. The patient is not exhibiting any aberrant behavior suggestive of drug diversion. The patient is not having any adverse reactions to medications. The patient is not suffering from daytime somnolence or mental acuity changes. The patient is managing opiate-induced constipation with appropriate wmua-jfh-mynfckg agents and dietary considerations. The patient was counseled on concern for caution with operating a motor vehicle while using opiate medications. A physical exam was performed and the patient's functional status was evaluated. [address] [address] PAIN MANAGEMENT CONSULTATION Name: JAMES LAMB Room #: REG CLI Jessica#: [id number] Admission: 04/14/17 Attend Phys: uJan David Porter DO Discharge: Date of : 56 Report #: [id number] All patients with back pain were advised against the bed rest greater than 4 days and were advised to return to normal activities. Pain score assessment was noted and the treatment plan was reviewed with the patient. All current medications, both prescribed and OTC were reviewed and reconciled on the electronic medical record. Tobacco screening was accomplished and smoking cessation was advised when indicated. BMI was noted and diet/exercise modification was recommended for all patients following outside normal parameters. I reviewed with the patient today their responsibilities to safeguard prescription medications, reviewed their responsibility to utilize medications only as prescribed by the physician. They are to seek and receive pain medications only from 1 physician group ( [facility]). They are to use 1 pharmacy and keep the clinic informed if they change pharmacies. Their responsibilities include making followup visits in a timely fashion and to avoid abrupt discontinuation of medication usage. Their responsibilities further include bringing their medications (bottles from the pharmacy with residual pills) to the visit for possible confirmation of pill counts and the patient understands it is their responsibility to submit to random drug screens to ensure both that the medications prescribed are present, and that no other controlled substances are present. All prescriptions provided today were generated electronically. ASSESSMENT: Symptomatic axial back pain and history of lumbosacral and lumbar spondylosis, requiring high-risk complex medication management. RECOMMENDATIONS: 1. We will get a buccal drug swab today. No aberrant behavior suggestive for drug diversion, simply complying with our opiate consent to treat contract. 2. Renew hydrocodone 7.5/325 one tablet 2-3 times a day, limits 75 tablets for 30 days. Encourage continuation of physical therapy. Follow up in 2 months for reevaluation or earlier if needed. <ELECTRONICALLY SIGNED> By: Juan David Porter DO 04/27/17 0913 1608 2243 Juan David Porter DO /nt
[2017-04-14 10:05] VITALS: BP 124/81
== END ==
LOC: PAIN 07:37
DX: M47.897 Other spondylosis, lumbosacral region (principal); M54.89 Other dorsalgia; J44.9 Chronic obstructive pulmonary disease, unspecified; Z79.899 Other long term (current) drug therapy

== ENCOUNTER → 2017-06-02 | Outpatient (CLI) | payer OTHER | LOC: RAD 08:54 | DX: J44.9 Chronic obstructive pulmonary disease, unspecified (principal); R91.8 Other nonspecific abnormal finding of lung field ==

== ENCOUNTER → 2017-06-16 | Outpatient (CLI) | payer OTHER ==
[~2017-06-16] VITALS: Ht 157.5 cm; Wt 60.1 kg
--- NOTE | ~2017-06-16 | HPC ---
[facility] [place] [address] PAIN MANAGEMENT CONSULTATION Name: JAMES LAMB Room #: REG BERTRAM Lopez#: [id number] Admission: 06/16/17 Attend Phys: Juan David Porter DO Discharge: Date of : 56 Report #: [id number] THIS REPORT FOR: //name// CC: Jenna Porter The patient is a 56-year-old female, typically treated for symptomatic axial back pain, lumbosacral spondylosis, lumbar spondylosis, requiring complex medication management. Last seen in pain clinic 04/14/2017. Random drug screen was accomplished at that time. The patient returns to pain clinic today. We had a prolonged visit from 10:18-10:45, greater than 50% of this 25 plus minute visit was spent counseling the patient. The patient notes current medication, hydrocodone 7.5/325 one tablet 2-3 times a day, limit 75 tablets for 30 days affords reasonable efficacy to enable the patient to participate in activities of daily living and does rate her subjective pain score 7 on a VAS. Notes pain is primarily left greater than right mid back, axial back pain exacerbated with standing and walking, some relief when she is recumbent. Does have a component of burning dysesthesia in her legs. We had done some interventional therapy including left SI and lumbar facet joint injections and have sent the patient to physical therapy. She does some of the core exercises at home, but states that prolonged exercise does exacerbate the axial back pain. We discussed that the last random drug screen was negative for hydrocodone, the patient did admit to take the medicines a little more aggressively in the first part of the month. She assured me today that she has taken hydrocodone tablet this morning and indeed had another hydrocodone last night. I pointed out that this would imply that the random drug screen today should be positive both for hydrocodone and hydrocodone metabolites. Again, prior screen 04/14/2017, positive for Xanax and cyclobenzaprine, both medications listed in the patient's electronic medical record. She does have a history of comorbid seizure disorder for which she takes Tegretol and bipolar disorder for which she takes lamotrigine. PHYSICAL EXAMINATION: Shows a 56-year-old female, BMI is 24.2 kg/m2. Blood pressure is 124/84, pulse of 119, respirations are 18. She has not fallen in the last 3 months. Medication list was reconciled. She is hypertensive. Opiate consent to treat contract was signed on 01/18/2017. The patient had a random drug screen at last visit, which was aberrant noting negative for hydrocodone and/or hydrocodone metabolites. [address] [address] PAIN MANAGEMENT CONSULTATION Name: JAMES LAMB Room #: REG BERTRAM Lopez#: [id number] Admission: 06/16/17 Attend Phys: Juan David Porter DO Discharge: Date of : 56 Report #: [id number] The patient rises from chair using armrest. Gait is tandem. Diffuse tenderness across the low back. Lumbar range of motion to flexion and side bending are slightly limited. All range of motion does exacerbate axial back pain. No radicular symptoms are noted. Denies bowel or bladder continence changes. Denies myelopathic symptoms including saddle anesthesia or loss of proprioception. ASSESSMENT: Symptomatic lumbar radiculopathy, axial back pain, lumbar spondylosis, requiring chronic complex medication management. RECOMMENDATIONS: 1. Repeat a buccal drug swab today. 2. Renew hydrocodone 7.5/325 one tablet 2-3 times a day, limit 75 tablets for 30 days. I have taken the liberty of writing for 2 months of current medication. Follow up at that time, earlier if needed. <ELECTRONICALLY SIGNED> By: Juan David Porter DO 06/19/17 0747 1226 1538 Juan David Porter DO /nt
[2017-06-16 10:04] VITALS: BP 124/84
== END ==
LOC: PAIN 06:59
DX: M54.16 Radiculopathy, lumbar region (principal); M47.896 Other spondylosis, lumbar region; Z79.899 Other long term (current) drug therapy

== ENCOUNTER → 2017-08-11 | Outpatient (CLI) | payer OTHER ==
[~2017-08-11] VITALS: Ht 157.5 cm; Wt 60.8 kg
[~2017-08-11] MED LIST changes: -HYDROCODON-ACE1 EAC8 PO; -HYDROCODONE-AP1 EA11 PO
--- NOTE | ~2017-08-11 | HPC ---
[facility] [place] [address] PAIN MANAGEMENT CONSULTATION Name: JAMES LAMB Room #: REG BERTRAM Lopez#: [id number] Admission: 08/11/17 Attend Phys: Juan David Porter DO Discharge: Date of : 56 Report #: [id number] THIS REPORT FOR: //name// CC: Jenna Porter HISTORY OF PRESENT ILLNESS: The patient is a pleasant 57-year-old female who has been treated for some time for axial back pain, lumbosacral spondylosis without myelopathy, requiring complex medication management. She has been managed with low dose opiate for some time. I believe she came in to the clinic in 06/2016. She had bilateral SI joint injections back in July, lumbar facet joint injections in November. We have continued hydrocodone 7.5/325 one tablet 2-3 times a day, limit 75 tablets for 30 days. There had been some concern, prior drug screen 04/14/2017 was negative for hydrocodone. We repeated the drug screen on 06/16/2017 at last visit. All was positive hydrocodone, was also positive for oxycodone. The patient presents to pain clinic today. We had a prolonged visit, greater than 25 minutes was spent counseling the patient, discussing therapeutic options and concerns. She notes pain continues to be problematic low back, radiates from the right to the left; exacerbated with standing, walking and bending. She describes constant, aching, pulling, throbbing pain. She denies any myelopathic symptoms. She does have COPD (she finally did quit smoking a few years ago). She does use supplemental oxygen p.r.n. Today, she is carrying her oxygen with her, but not using nasal cannula. Her room air oxygen saturation is about 93%. PHYSICAL EXAMINATION: Notes a 57-year-old female, BMI is 24.5 kilograms per meter squared. Blood pressure 115/79, pulse 108, respirations 16. As noted, room air oxygen saturation 93%. Subjective pain score is 5 on a VAS. She rises from chair using armrest. Gait is generally tandem. Diffuse tenderness across the low back. No discrete trigger points noted. Lumbar flexion is limited. Lower extremity strength is generally symmetric. Medication list was reconciled. We had signed an opiate consent to treat contract in 01/18/2017. We reviewed the patient's rights and responsibilities regarding this issue. The patient denies any knowledge of how oxycodone could possibly have gotten into her urine. I pointed out that we had had to discrepant random drug screens, one negative for prescribed medication and one positive for a non-prescribed medication. Again, the patient is on a moderate low dose opiate, hydrocodone 7.5/325 one tablet 2-3 times a day. We did repeat a buccal swab today. If there are any aberrant findings, we will continue to see the patient for interventional therapy as needed, but I would not feel comfortable writing for any further [address] [address] PAIN MANAGEMENT CONSULTATION Name: JAMES LAMB Room #: REG BERTRAM Lopez#: [id number] Admission: 08/11/17 Attend Phys: Juan David Porter DO Discharge: Date of : 56 Report #: [id number] opiate at that point. I did provide her with a single prescription for hydrocodone 7.5/325, limit 75 tablets, one tablet 2-3 times a day. Follow up in 1 month to review diagnostic findings (buccal drug swab should show positive for hydrocodone and metabolites with no other opiate noted). Discharged in good and stable condition after prolonged visit spent counseling the patient, discussing concerns over questionable random drug screen findings. <ELECTRONICALLY SIGNED> By: Juan David Porter DO 08/14/17 0943 [id number] Juan David Porter DO /nt
[2017-08-11 09:32] VITALS: BP 115/79
== END ==
LOC: PAIN 07:06
DX: M47.897 Other spondylosis, lumbosacral region (principal); Z79.899 Other long term (current) drug therapy

== ENCOUNTER → 2017-11-10 | Outpatient (CLI) | payer OTHER ==
[~2017-11-10] VITALS: Ht 157.5 cm; Wt 58.2 kg
[~2017-11-10] MED LIST changes: +HYDROCODON-ACE1 EAC8 PO; +HYDROCODONE-AP1 EA11 PO
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
[2017-11-10 09:11] VITALS: BP 106/71
== END ==
LOC: PAIN 06:49
DX: M47.817 Spondylosis without myelopathy or radiculopathy, lumbosacral region (principal); I10 Essential (primary) hypertension; Z79.899 Other long term (current) drug therapy

== ENCOUNTER 2018-01-30 14:41 | Emergency (ER) | payer OTHER ==
[~2018-01-30] VITALS: Ht 157.5 cm; Wt 57.6 kg
[2018-01-30] MEDS ORDERED: NORCO 7.5-3251 EACH PO (16:01)
== END 2018-01-30 16:22 | disposition home or self-care (01) ==
LOC: ER 14:41
DX: S20.212A Contusion of left front wall of thorax, initial encounter (principal); F17.210 Nicotine dependence, cigarettes, uncomplicated; I10 Essential (primary) hypertension; J44.9 Chronic obstructive pulmonary disease, unspecified; G43.909 Migraine, unspecified, not intractable, without status migrainosus; F41.9 Anxiety disorder, unspecified; Z90.710 Acquired absence of both cervix and uterus; F31.9 Bipolar disorder, unspecified; K21.9 Gastro-esophageal reflux disease without esophagitis; Z90.89 Acquired absence of other organs; Z88.6 Allergy status to analgesic agent; Z88.5 Allergy status to narcotic agent; Z88.8 Allergy status to other drugs, medicaments and biological substances; W16.212A Fall in (into) filled bathtub causing other injury, initial encounter; Y92.002 Bathroom of unspecified non-institutional (private) residence as the place of occurrence of the external cause; Y93.89 Activity, other specified; Y99.8 Other external cause status

== ENCOUNTER → 2018-03-02 | Outpatient (CLI) | payer OTHER ==
[~2018-03-02] VITALS: Ht 157.5 cm; Wt 56.7 kg
[~2018-03-02] MED LIST changes: +MOVANTIK25 MG PO
--- NOTE | ~2018-03-02 | HPC ---
[facility] [place] [address] [place] [address] PAIN MANAGEMENT CONSULTATION Name: JAMES LAMB Room #: REG BERTRAM Lopez#: [id number] Admission: 03/02/18 Attend Phys: Bean Fowler MD Discharge: Date of : 56 Report #: [id number] THIS REPORT FOR: //name// CC: Jenna Fowler DATE OF SERVICE: 03/05/2018 FOLLOWUP COMPLAINT: Here for medications. FOLLOWUP: The patient is a 57-year-old female who has followed in the pain clinic. As you recall, she has chronic pain involving her lumbosacral area. Suffers from spondylosis. She has chronic pain involving her low back area. She reports that she did have a tear in the L5 lumbar area and a bulging disk. Continues to have pain that radiates down into her legs. Does have a history of sacroiliac joint injections and facet irritation. Notes some continued walking discomfort as well as worsening with standing and bending. She has been noted to have osteoporosis. She is now being treated for this by use of vitamin D and other medications. She hopes to slow the loss of calcium. Rates her pain today as an 8/10. It can to be 4/10. She is on chronic oxygen therapy because of her chronic obstructive pulmonary problems. ALLERGIES: CODEINE, ASPIRIN, DILAUDID, and NAPROSYN. PAIN CLINIC ASSESSMENT/PQRS: 1. History of osteoarthritis -- patient is not being treated for osteoarthritis. She does have some osteoporosis, she is not being treated for rheumatoid arthritis. 2. Height 5 feet 2 inches, weight 125 pounds, BMI is 22.9. 3. Vital signs: Blood pressure 107/73, pulse 102, respiratory rate 16, room air saturation 93%. 4. Pain intensity 12/01, oftentimes /. 5. Fall risk. The patient has not fallen in the last 3 months. 6. Blood thinner. The patient is not on a blood thinning medication. 7. History of hypertension. The patient is being treated for hypertension. 8. Opioids greater than 6 weeks. The patient is receiving her [facility] from [facility]. 9. Risk assessment tool, low risk 06/24 free opioid use. 10. Functional assessment tool . 11. Recreational drug use. The patient denies use of recreational drugs. 12. Tobacco: The patient is a former smoker. Smoked for 42 years, has not smoked for the last 5 years. 13. Alcohol: The patient denies use of alcoholic beverages. PHYSICAL EXAMINATION: GENERAL: The patient is a well-developed black female, appears her stated age. [address] [address] PAIN MANAGEMENT CONSULTATION Name: JAMES LAMB Room #: REG [facility]..#: [id number] Admission: 03/02/18 Attend Phys: Bean Fowler MD Discharge: Date of : 56 Report #: [id number] She is alert and oriented x 3. Her affect is appropriate. Speech is fluent. HEENT: Normocephalic, atraumatic. Extraocular muscles intact. Sclerae nonicteric. Mucous membranes are moist. Hearing is within normal limits. NECK: Without adenopathy or bruits. CHEST: Clear, decreased breath sounds patient is wearing oxygen to breathe through nasal cannula. ABDOMEN: Nontender. Bowel sounds present. EXTREMITIES: Upper extremity muscle strength 5/5 for the major muscle groups. Lower extremity muscle strength is judged to be 5/5 for the major muscle groups. The patient does still complain of pain and discomfort in the lower portion of her back. Have pain and discomfort in the L4-L5 distribution. Straight leg raises are negative. ASSESSMENT: 1. Chronic pain treated with complex medical regimen. 2. Hypertension. 3. Chronic obstructive pulmonary disease. 4. Emphysema. 5. Migraine without aura. 6. Seizures last in 12/2015. 7. Osteoporosis, now be treated by her primary for osteoporosis. RECOMMENDATIONS: We discussed treatment options with the patient. At this juncture, she feels her medications are helpful. We will renew their use. We have discussed the problems with opioid medications. Chronic use of opioid medications can lead to less effective pain control as a result of tolerance as well as some patients can develop addiction when ____ use this medication. The patient feels her medications are helpful. Does not pose any problems with her breathing. Not have any problems with GI. We will renew her medications in a script for hydrocodone 7.5 mg 1 p.o. daily, have been released. She will call the Pain Clinic should she have any concerns or questions. We would like to thank you for letting us participate in her care. We hope she continues to improve. By: [id number] Bean Fowler MD /janay
[2018-03-02 09:46] VITALS: BP 107/73
== END ==
LOC: PAIN 06:50
DX: G89.29 Other chronic pain (principal); I10 Essential (primary) hypertension; J43.9 Emphysema, unspecified; G43.009 Migraine without aura, not intractable, without status migrainosus; R56.9 Unspecified convulsions; M81.0 Age-related osteoporosis without current pathological fracture; Z79.899 Other long term (current) drug therapy

== ENCOUNTER → 2018-04-04 | Outpatient (CLI) | payer OTHER ==
[~2018-04-04] VITALS: Ht 157.5 cm; Wt 55.9 kg
[~2018-04-04] MED LIST changes: +BUTALB-APAP-CA1 EACH PO
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
[2018-04-04 09:31] VITALS: BP 122/81
== END ==
LOC: PAIN 09:17
DX: M47.816 Spondylosis without myelopathy or radiculopathy, lumbar region (principal); G89.29 Other chronic pain; I10 Essential (primary) hypertension; J43.9 Emphysema, unspecified; G43.009 Migraine without aura, not intractable, without status migrainosus; R56.9 Unspecified convulsions; M81.0 Age-related osteoporosis without current pathological fracture; Z79.899 Other long term (current) drug therapy

== ENCOUNTER → 2018-04-30 | Outpatient (CLI) | payer OTHER | LOC: RAD 11:00 | DX: M25.551 Pain in right hip (principal); M25.552 Pain in left hip ==

== ENCOUNTER → 2018-06-01 | Outpatient (CLI) | payer OTHER ==
[~2018-06-01] VITALS: Ht 157.5 cm; Wt 57.2 kg
[~2018-06-01] MED LIST changes: +ALLEGRA-D 24 H1 EACH PO; +MOBIC15 MG PO
[2018-06-01 08:50] VITALS: BP 135/79
--- NOTE | 2018-06-01 09:01 | NUR ---
Pain Clinic Assessment: 1. History of Osteoarthritis: Not Applicable History of Rheumatoid Arthritis: Not Applicable 2. Height: 5 ft. 2 in. 157.5 cm. Weight: 126.0 lb. oz. 57.153 kg. Patient's BMI: 23.0 3. Vital Signs: BP: 135/79 Pulse: 106 Resp: 12 Temp: 02 Sat: 95 ECG Mon: 4. Pain Intensity: 5 5. Fall Risk: Dizziness: N Needs help standing or walking: N Fallen in the last 3 months: Y Fall risk comments: 6. Patient on Blood Thinner: None 7. History of Hypertension: N 8. Opioid Therapy greater than 6 weeks: Y Opiate Contract Signed: 01/18/17 9. Risk Assessment Tool Provided: LOW RISK 06/24 10. Functional Assessment Tool: 11. Recreational Drug Use: Never Drug Type: Tobacco Use: Former Smoker Tobacco Type: Amount or Packs/day: How Many Years: Alcohol Use: No Frequency: Quant:
--- NOTE | 2018-06-01 16:49 | HPC ---
[facility] [place] [address] PAIN MANAGEMENT CONSULTATION Name: JAMES LAMB Room #: REG BERTRAM Lopez#: [id number] Admission: 06/01/18 Attend Phys: Bean Fowler MD Discharge: Date of : 56 Report #: [id number] THIS REPORT FOR: //name// CC: Jenna Fowler DATE OF SERVICE: 06/01/2018 FOLLOWUP HISTORY/CHIEF COMPLAINT: Here for medication renewal. HISTORY: The patient is a 57-year-old female who has been followed in the pain clinic. As you recall, she has problems with her back. She has a history of spondylosis. Also, has been treated over the years for chronic back pain. She continues to have pain, is radiating down into her legs. She has a history of SI joint dysfunction. She has undergone facet joint injections. She recently fell. States since she was at home. She was reaching for a [employer]. She fell and landed on her side. Since that time period she has noted increased pain in her hips. Did have an x-ray, which did not show any fracture. Had some pain on the right groin area, now it has moved to the left side. She has not fallen in the snow. It has snowed recently. She continues to wear oxygen. She is noting some increased problems with breathing secondary to the worsening of the weather. ALLERGIES: CODEINE, ASPIRIN, DILAUDID, NAPROSYN. CURRENT MEDICATIONS: Hydrocodone 5/325 one p.o. every 4 hours, Flexeril 10 mg p.o. t.i.d., Advair 230 mcg/21 mcg inhaler, losartan 100 mg, Linzess 145 mcg, Lamictal 100 mg b.i.d., alendronate 70 mg Tuesdays, Cogentin 1 mg, Spiriva 18 mcg inhaler, hydralazine 25 mg, omeprazole 20 mg, Zofran 4 mg, loratadine/pseudoephedrine, Risperdal 3 mg, Fioricet 50/300/40, alprazolam 1 mg t.i.d., Ventolin inhaler 2 puffs, benzonatate 100 mg cough, carbamazepine 200 mg q.i.d., Norvasc 10 mg. PAIN CLINIC ASSESSMENT/PQRS: 1. The patient is not being treated for osteoarthritis. She does have some sacroiliac joint dysfunction. 2. The patient is not being treated for rheumatoid arthritis. 3. Height 5 feet 2 inches, weight 126 pounds, BMI is 23. 4. Vital signs: Blood pressure 135/79, pulse 106, respiratory rate 12, room air saturation 95%. 5. Pain intensity 10. 6. Fall risk. The patient has fallen and has been seen and had an x-ray of her hip with no fracture. 7. Blood thinner. The patient is not on a blood thinning medication. 8. Hypertension. The patient is not being treated for hypertension. 9. Opioid greater than 6 weeks. The patient [place] [address] PAIN MANAGEMENT CONSULTATION Name: JAMES LAMB Room #: REG CLI Jessica#: [id number] Admission: 06/01/18 Attend Phys: Bean Fowler MD Discharge: Date of : 56 Report #: [id number] source, pain clinic. 10. Risk assessment tool ____ low 06/24. 11. Functional assessment tool . 12. Recreational drug use. The patient denies use of recreational drugs. 13. Tobacco: The patient is a former smoker. 14. Alcohol: The patient denies use of alcoholic beverages at this juncture. PHYSICAL EXAMINATION: GENERAL: The patient is a well-developed well-nourished black female, appears her stated age. She is alert and oriented x 3. Affect is appropriate. Speech is fluent. HEENT: Normocephalic, atraumatic. Extraocular eye muscles intact. Sclerae nonicteric. Mucous membranes are moist. The patient has a nasal cannula receiving oxygen. NECK: Without adenopathy or bruits. ABDOMEN: Nontender. Bowel sounds present. EXTREMITIES: The patient with upper extremity muscle strength judged to be 5-/5 for the major muscle groups and 5-/5 for the major muscle groups in the lower extremity. The patient without significant scoliosis, kyphosis or lordosis. The patient has some pain and discomfort that is in the left groin area. Had some similar pain in the right side, but it has moved from the right to the left at this juncture. IMPRESSION: 1. Chronic pain with complex medical management. The patient feels that her medications are working reasonably well. She would like to have them renewed. 2. Hypertension. 3. Chronic obstructive pulmonary disease. 4. Emphysema. 5. Migraines without aura. 6. Seizures, last 12/2015. 7. Osteoporosis, treated by her primary physician for osteoporosis. IMAGING DATA: Hip bilateral and pelvis x-ray dated 04/30/2018: Indication: Bilateral hip pain. Comparison: No relevant comparison available. Findings: No fracture or dislocation. Normal alignment. Joint spaces are preserved. Although no definite fracture is seen. Evaluation of the sacrum is limited by overlying bowel gas. The SI joints are normal. Soft tissues are unremarkable. RECOMMENDATIONS: We discussed treatment options with the patient. Risks and benefits of opioid medications were again reviewed. The patient feels that her pain medications are helpful. She is able to engage in activities, she would not be able to without them. Still has pain and history of sacroiliac joint problems. She is having some pain and discomfort in the left hip after a fall. [facility] [address] [place] [address] PAIN MANAGEMENT CONSULTATION Name: JAMES LAMB Room #: REG CLI [facility].#: [id number] Admission: 06/01/18 Attend Phys: Bean Fowler MD Discharge: Date of : 56 Report #: [id number] States that she keeps her medications in a guarded area. She is aware that medications over a long period of time can become less effective secondary to development of tolerance. She would like to continue with the medications. A script for her medications have been rewritten. We would like to thank you for letting us participate in her care. We hope she continues to improve. <ELECTRONICALLY SIGNED> By: Bean Fowler MD 06/01/18 [id number] Bean Fowler MD /nt
== END ==
LOC: PAIN 07:10
DX: M81.0 Age-related osteoporosis without current pathological fracture (principal); I10 Essential (primary) hypertension; G43.009 Migraine without aura, not intractable, without status migrainosus; R56.9 Unspecified convulsions; J43.9 Emphysema, unspecified; Z79.899 Other long term (current) drug therapy

== ENCOUNTER → 2018-07-27 | Outpatient (CLI) | payer OTHER ==
[~2018-07-27] VITALS: Ht 162.6 cm; Wt 57.2 kg
[2018-07-27 08:56] VITALS: BP 118/75
--- NOTE | 2018-07-27 09:14 | NUR ---
Pain Clinic Assessment: 1. History of Osteoarthritis: Not Applicable History of Rheumatoid Arthritis: Not Applicable 2. Height: 5 ft. 4 in. 162.6 cm. Weight: 126.2 lb. oz. 57.244 kg. Patient's BMI: 21.7 3. Vital Signs: BP: 118/75 Pulse: 120 Resp: 14 Temp: 02 Sat: 94 ECG Mon: 4. Pain Intensity: 7 5. Fall Risk: Dizziness: N Needs help standing or walking: N Fallen in the last 3 months: N Fall risk comments: 6. Patient on Blood Thinner: None 7. History of Hypertension: N 8. Opioid Therapy greater than 6 weeks: Y Opiate Contract Signed: 01/18/17 9. Risk Assessment Tool Provided: LOW RISK 3 10. Functional Assessment Tool: 11. Recreational Drug Use: Never Drug Type: Tobacco Use: Former Smoker Tobacco Type: Amount or Packs/day: How Many Years: Alcohol Use: No Frequency: Quant:
--- NOTE | 2018-07-30 11:40 | HPC ---
[facility] [place] [address] [address] PAIN MANAGEMENT CONSULTATION Name: JAMES LAMB Room #: REG [facility] M.R.#: [id number] Admission: 07/27/18 ������������������ Attend Phys: Julia Harrington Discharge: ������������������ Date of : 56 Report #: [id number] THIS REPORT FOR: //name// CC: [facility] Harrington [facility] DATE OF SERVICE: 07/27/2018 CHIEF COMPLAINT: Low back pain and right groin pain. HISTORY OF PRESENT ILLNESS: This is a very pleasant 58-year-old female who returns to the pain clinic today for problems with her lower back. She also has ongoing groin pain. Today, she tells me that it is worse on the right side, but occasionally, it is also on the left side. She tells me that her pain medications are very helpful in controlling her pain. She feels that the hydrocodone allows her to function in her daily activities and the meloxicam has helped her significantly also. Dr. Fowler had given her a trial of that medication in May. She would like refills of these medications today. The patient also tells me that she has a bite or something on her wrist that she was wanting us to look at. ALLERGIES: CODEINE, ASPIRIN, DILAUDID AND NAPROXEN. CURRENT LIST OF MEDICATIONS: Hydrochlorothiazide 12.5 mg daily, meloxicam 15 mg daily, Ana María-D as needed, hydrocodone 7.5/325 p.r.n., Movantik 25 mg p.r.n., Flexeril 10 mg 3 times a day p.r.n., Advair daily, losartan 100 mg daily, Linzess 145 mcg daily, Lamictal 100 mg b.i.d., Fosamax once a week, Cogentin 1 daily, omeprazole 20 mg daily, Zofran as needed, Risperdal 3 mg daily, Fioricet as needed, alprazolam as needed, albuterol as needed, carbamazepine 200 mg 4 times a day and amlodipine 10 mg daily. PQRS: 1. She is not being treated for osteoarthritis and she does not have rheumatoid arthritis. 2. Height is 5 feet 4 inches, weight is 126, BMI is 21.7. 3. Vital signs. Blood pressure 118/75, pulse is 120, respirations 14, oxygen sat is 94%. 4. Pain score is 7/10. 5. Denies dizziness. Does not need help walking or standing. Has not fallen in the last 3 months. 6. The patient is not on any blood thinners. She does take medicines for hypertension. 7. Opioid therapy is greater than 6 weeks, therefore, an opioid signed contract is on the chart. 8. Her risk assessment tool is low. Her functional assessment is 30/70. 9. Her recreational drug use, she denies. [place] former [place] [address] PAIN MANAGEMENT CONSULTATION Name: JAMES LAMB Room #: REG [facility] Lopez#: [id number] Admission: 07/27/18 ������������������ Attend Phys: Julia Harrington Discharge: ������������������ Date of : 56 Report #: [id number] drink alcohol. We did check the prescription monitoring system. The patient is filling appropriately with her narcotics from Dr. Fowler. She does have a recent drug screen on the chart. She tells me she does safeguard her medications. PHYSICAL EXAMINATION: GENERAL: This is a well-developed, well-nourished black female who appears her stated age. She is alert and orientated, and her affect is appropriate. HEENT: Normocephalic, atraumatic. Extraocular eye muscles are intact. Mucous membranes are moist. The patient does have nasal cannula oxygen concentrator sitting in the chair, but is not wearing it at this present time. NECK: Without adenopathy or JVD. EXTREMITIES: The patient's upper extremity strength is judged to be 5/5 in major muscle groups. The patient is without scoliosis, kyphosis or lordosis. In her lower extremities, muscle strength judged to be 5/5. SKIN: She does complain and shows a raised red erythema area that is not weeping on her right wrist, thinks it may have been from a bug bite, but unsure. It is causing significant itching for the patient. IMPRESSION: 1. Chronic pain with complex medical management. 2. Hypertension. 3. Chronic obstructive pulmonary disease. 4. Emphysema. 5. Migraines. 6. Seizure disorder. 7. Osteoporosis. We reviewed the fact that opiate medications are being used to provide analgesia adequate to support activities of daily living, not attempting to achieve a specific pain score on the 0-10 Visual Analog Scale. The current opiate medications are providing sufficient analgesia to allow the patient to participate in activities of daily living. The patient is not exhibiting any aberrant behavior suggestive of drug diversion. The patient is not having any adverse reactions to medications. The patient is not suffering from daytime somnolence or mental acuity changes. The patient is managing opiate-induced constipation with appropriate pihl-ojs-ycgpzvb agents and dietary considerations. The patient was counseled on concern for caution with operating a motor vehicle while using opiate medications. A physical exam was performed and the patient's functional status was evaluated. All patients with back pain were advised against the bed rest greater than 4 days and were advised to return to normal activities. Pain score assessment was noted and the treatment plan was reviewed with the patient. All current medications, both prescribed and OTC were reviewed and reconciled on the [facility] [address] [place] [address] PAIN MANAGEMENT CONSULTATION Name: ROSANA AGUILARDINH FARNSWORTHARA RONY Room #: REG [facility] M.R.#: [id number] Admission: 07/27/18 ������������������ Attend Phys: Julia Harrington Discharge: ������������������ Date of : 56 Report #: [id number] electronic medical record. Tobacco screening was accomplished and smoking cessation was advised when indicated. BMI was noted and diet/exercise modification was recommended for all patients following outside normal parameters. I reviewed with the patient today their responsibilities to safeguard prescription medications, reviewed their responsibility to utilize medications only as prescribed by the physician. They are to seek and receive pain medications only from 1 physician group ( [facility]). They are to use 1 pharmacy and keep the clinic informed if they change pharmacies. Their responsibilities include making followup visits in a timely fashion and to avoid abrupt discontinuation of medication usage. Their responsibilities further include bringing their medications (bottles from the pharmacy with residual pills) to the visit for possible confirmation of pill counts and the patient understands it is their responsibility to submit to random drug screens to ensure both that the medications prescribed are present, and that no other controlled substances are present. All prescriptions provided today were generated electronically. PLAN: 1. We discussed treatment options with her today. The patient tells me that her pain medicines are very helpful in reducing her pain. She is able to work outside and carry out her regular activities by taking 2-3 hydrocodone a day. She also finds the meloxicam very helpful and would like prescriptions renewed for each of these today. Hydrocodone 7.5/325 #75 for today and 4 weeks given and meloxicam 15 mg #30 with 1 additional refill. 2. The patient does have a raised erythema area on her right wrist. Dr. Fowler did come and look at it today. We are unsure if it is a spider bite or if she got into something else. The patient was advised to take pictures of it to notice the size. If it increases or if it does get worse, she is to call her primary care doctor. Otherwise, she is going to continue treating it with her calamine lotion and her antibiotic triple cream that she is using. 3. The patient will be seen in 2-month time period. At that time, we will repeat her drug screen. 4. The patient is seen with Dr. Fowler who collaborated care. ��������������������������������������������� <ELECTRONICALLY SIGNED> ���������������������������������������� By: Julia aHrrington ��������������������������������������������� 07/30/18 [id number] Julia Harrington /janay
== END ==
LOC: PAIN 06:54
DX: G89.29 Other chronic pain (principal); M54.5 Low back pain; M81.0 Age-related osteoporosis without current pathological fracture; I10 Essential (primary) hypertension; J43.9 Emphysema, unspecified; G43.909 Migraine, unspecified, not intractable, without status migrainosus; G40.909 Epilepsy, unspecified, not intractable, without status epilepticus; Z79.899 Other long term (current) drug therapy

== ENCOUNTER → 2018-09-21 | Outpatient (CLI) | payer OTHER ==
[~2018-09-21] VITALS: Ht 162.6 cm; Wt 59.0 kg
[~2018-09-21] MED LIST changes: +BENADRYL ALLERG25 MG PO
[2018-09-21 09:23] VITALS: BP 110/76
--- NOTE | 2018-09-21 09:37 | NUR ---
Pain Clinic Assessment: 1. History of Osteoarthritis: Not Applicable History of Rheumatoid Arthritis: Not Applicable 2. Height: 5 ft. 4 in. 162.6 cm. Weight: 130.0 lb. oz. 58.968 kg. Patient's BMI: 22.3 3. Vital Signs: BP: 110/76 Pulse: 109 Resp: 14 Temp: 02 Sat: 94 ECG Mon: 4. Pain Intensity: 6 5. Fall Risk: Dizziness: N Needs help standing or walking: N Fallen in the last 3 months: N Fall risk comments: 6. Patient on Blood Thinner: None 7. History of Hypertension: N 8. Opioid Therapy greater than 6 weeks: Y Opiate Contract Signed: 01/18/17 9. Risk Assessment Tool Provided: LOW RISK 3 10. Functional Assessment Tool: 11. Recreational Drug Use: Never Drug Type: Tobacco Use: Former Smoker Tobacco Type: Amount or Packs/day: How Many Years: Alcohol Use: No Frequency: Quant:
--- NOTE | 2018-09-24 07:53 | HPC ---
[facility] [address] [address] [place] [address] PAIN MANAGEMENT CONSULTATION Name: JAMES LAMB Room #: REG [facility] M..#: [id number] Admission: 09/21/18 ������������������ Attend Phys: Julia Harrington Discharge: ������������������ Date of : 56 Report #: [id number] THIS REPORT FOR: //name// CC: Julia Harrington Jenna [facility] DATE OF SERVICE: 09/21/2018 CHIEF COMPLAINT: Low back pain. HISTORY OF PRESENT ILLNESS: This is a very pleasant 58-year-old female who returns to the Pain Clinic today for her ongoing problems with her lower back. She tells me that occasionally she will have some left groin pain, but it has not bothered her in the last week or so. Her pain today is a 6/10, mostly an aching, throbbing, burning pain, worse with walking and weather changes. She said that heat and medication are very helpful. She tells me she has no problems with constipation as long as she takes some tzqb-hih-knsdkot laxatives and does not have problems with daytime sleepiness. She tells me that she feels like her COPD is getting worse, requiring her to wear her oxygen more frequently. 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 The patient would like a refill of her medications today. ALLERGIES: DILANTIN, GEODON, CODEINE, ASPIRIN, AND HYDROMORPHONE. CURRENT MEDICATIONS: Benadryl, meloxicam 15 mg, hydrocodone 7.5 mg p.r.n., hydrochlorothiazide 12.5, Ana María-D, Movantik 25 mg, Flexeril, Advair, losartan 100 mg, Linzess 145 mcg, Lamictal 100 mg, Flomax 70 mg, Cogentin 1 mg, Spiriva, omeprazole 20 mg, Zofran 4 mg, Risperdal 3 mg, Fioricet /300/40, Xanax 1 mg, albuterol, benzonatate 100 mg, carbamazepine 200 mg and amlodipine. PQRS: 1. She is not being treated for osteoarthritis or rheumatoid arthritis. 2. Height is 5 feet 4 inches, weight is 130, BMI is 22. 3. Vital signs: 110/76, pulse is 109, respirations 14, oxygen sat is 94. 4. Pain score is 6/10. 5. Fall risk: Denies dizziness, does not need help with walking or standing, has not fallen in the last 3 months. 6. The patient is not on any blood thinners. She does not take medicines for hypertension. 7. Opioid therapy is greater than 6 weeks; therefore, an opiate signed contract is on the chart. Her risk assessment tool is low. Functional assessment is 30/70. 8. Recreational drug use, she denies. She is a former smoker and does not drink alcohol. We did check the prescription monitoring system[place] [address] PAIN MANAGEMENT CONSULTATION Name: JAMES LAMB Room #: REG [facility] Lopez#: [id number] Admission: 09/21/18 ������������������ Attend Phys: Julia Harrington Discharge: ������������������ Date of : 56 Report #: [id number] appropriately from doctors within our clinic for her narcotics. There is a drug screen on the chart that was appropriate. PHYSICAL EXAMINATION: GENERAL: This is a well-developed, well-nourished black female who appears her stated age. She is alert and orientated and her affect is appropriate. She places her pain score at 6/10. HEENT: Normocephalic, atraumatic. Extraocular eye muscles are intact. Mucous membranes are moist. She does have nasal cannula oxygen in place. NECK: Without adenopathy or JVD. EXTREMITIES: The patient has upper extremity strength judged to be 5/5 in all of her major muscle groups. She is without kyphosis, scoliosis or lordosis. She has tenderness across her lumbar spine. In her lower extremity, her muscle strength is judged to be 5/5 in all major muscle groups. IMPRESSION: 1. Chronic pain with complex medical management. 2. Chronic obstructive pulmonary disease. 3. Emphysema. 4. Osteoporosis. 5. Low back pain. We reviewed the fact that opiate medications are being used to provide analgesia adequate to support activities of daily living, not attempting to achieve a specific pain score on the 0-10 Visual Analog Scale. The current opiate medications are providing sufficient analgesia to allow the patient to participate in activities of daily living. The patient is not exhibiting any aberrant behavior suggestive of drug diversion. The patient is not having any adverse reactions to medications. The patient is not suffering from daytime somnolence or mental acuity changes. The patient is managing opiate-induced constipation with appropriate sqyk-ekm-jlojlxe agents and dietary considerations. The patient was counseled on concern for caution with operating a motor vehicle while using opiate medications. A physical exam was performed and the patient's functional status was evaluated. All patients with back pain were advised against the bed rest greater than 4 days and were advised to return to normal activities. Pain score assessment was noted and the treatment plan was reviewed with the patient. All current medications, both prescribed and OTC were reviewed and reconciled on the electronic medical record. Tobacco screening was accomplished and smoking cessation was advised when indicated. BMI was noted and diet/exercise modification was recommended for all patients following outside normal parameters. I reviewed with the patient today their responsibilities to safeguard prescription medications, reviewed their responsibility to utilize medications [facility] [address] [place] [address] PAIN MANAGEMENT CONSULTATION Name: JAMES LAMB Room #: REG [facility] M.R.#: [id number] Admission: 09/21/18 ������������������ Attend Phys: Julia Harrington Discharge: ������������������ Date of : 56 Report #: [id number] only as prescribed by the physician. They are to seek and receive pain medications only from 1 physician group ( [facility]). They are to use 1 pharmacy and keep the clinic informed if they change pharmacies. Their responsibilities include making followup visits in a timely fashion and to avoid abrupt discontinuation of medication usage. Their responsibilities further include bringing their medications (bottles from the pharmacy with residual pills) to the visit for possible confirmation of pill counts and the patient understands it is their responsibility to submit to random drug screens to ensure both that the medications prescribed are present, and that no other controlled substances are present. All prescriptions provided today were generated electronically. PLAN: 1. We discussed treatment options with the patient today. The patient feels like she is doing quite well on her current regimen of medications. We will refill her hydrocodone 7.5/325, #75 for today and 4-week release. 2. The patient does not take her meloxicam daily. So therefore, we will not fill this at this time. If she does need a refill, we will call that in. 3. The patient is telling me that she requires oxygen more frequently. I encouraged her to see her self propelled dredge operator, which she is in later this month and she is hopeful that her lung status has changed enough, so she can be placed on the lung transplant list. Evidently, she was very close to be placed on this earlier, but had not quite met the criteria. 4. Dr. Fowler to come and see the patient today in collaborative care. The patient will return in 2 months for followup for an appointment. ��������������������������������������������� <ELECTRONICALLY SIGNED> ���������������������������������������� By: Juila Harrington ��������������������������������������������� 09/24/18 [id number] Julia Harrington /nt
== END ==
LOC: PAIN 06:47
DX: M54.5 Low back pain (principal); G89.29 Other chronic pain; J43.9 Emphysema, unspecified; M81.0 Age-related osteoporosis without current pathological fracture; Z79.891 Long term (current) use of opiate analgesic; Z79.899 Other long term (current) drug therapy; Z88.8 Allergy status to other drugs, medicaments and biological substances

== ENCOUNTER → 2018-11-16 | Outpatient (CLI) | payer OTHER ==
[~2018-11-16] VITALS: Ht 162.6 cm; Wt 56.7 kg
[2018-11-16 08:44] VITALS: BP 114/84
--- NOTE | 2018-11-16 08:55 | NUR ---
Pain Clinic Assessment: 1. History of Osteoarthritis: Not Applicable History of Rheumatoid Arthritis: Not Applicable 2. Height: 5 ft. 4 in. 162.6 cm. Weight: 125.0 lb. oz. 56.700 kg. Patient's BMI: 21.4 3. Vital Signs: BP: 114/84 Pulse: 117 Resp: 14 Temp: 02 Sat: 95 ECG Mon: 4. Pain Intensity: 7 5. Fall Risk: Dizziness: N Needs help standing or walking: N Fallen in the last 3 months: N Fall risk comments: 6. Patient on Blood Thinner: None 7. History of Hypertension: N 8. Opioid Therapy greater than 6 weeks: Y Opiate Contract Signed: 01/18/17 9. Risk Assessment Tool Provided: LOW RISK 3 10. Functional Assessment Tool: 11. Recreational Drug Use: Never Drug Type: Tobacco Use: Former Smoker Tobacco Type: Amount or Packs/day: How Many Years: Alcohol Use: No Frequency: Quant:
--- NOTE | 2018-11-20 07:56 | HPC ---
[facility] [address] [place] [address] PAIN MANAGEMENT CONSULTATION Name: JAMES LAMB [id number] Admission: 11/16/18 ������������������ Attend Phys: Julia Harrington Discharge: ������������������ Date of : 56 Report #: [id number] THIS REPORT FOR: //name// CC: Julia Olea MD DATE OF SERVICE: 11/16/2018 CHIEF COMPLAINT: Low back pain. HISTORY OF PRESENT ILLNESS: This is a very pleasant 58-year-old female who returns to the pain clinic today for refill of her medications that she uses to help treat her ongoing low back pain and left groin pain. She reports today that her pain is a 7/10, mostly an aching, throbbing, pulling, pain worse with walking and bad weather, medications and heating pad are very beneficial. She tells me she has no problems with constipation as long as she stays on a regular dose of Linzess and Movantik. She denies any daytime sleepiness or feeling overmedicated from her medications. The patient tells me that she is excited about traveling, going on a trip to [place] to see her brother and celebrate her anniversary next month. She is taking her 92-year-old mother with her. She tells me that will probably increase her pain some when she is traveling, but she is very much looking forward to it. ALLERGIES: DILANTIN, GEODON, CODEINE, ASPIRIN AND HYDROMORPHONE. CURRENT LIST OF MEDICATIONS: Hydrocodone 7.5/325 p.r.n., Benadryl, meloxicam 15 mg daily, hydrochlorothiazide, Ana María, Movantik, Flexeril, Advair, losartan, Linzess, Lamictal, Fosamax, Cogentin, Spiriva, omeprazole, Risperdal, Fioricet, alprazolam, albuterol, carbamazepine and amlodipine. PQRS: 1. She is not being treated for osteoarthritis or rheumatoid arthritis. 2. Height is 5 feet 4 inches, weight is 125. BMI is 21. 3. VITAL SIGNS: Blood pressure 114/84, pulse is 117, respirations 14, oxygen sat is 95. 4. Pain score 7/10. 5. Denies dizziness, does not need help walking or standing, has not fallen in the last 3 months. 6. The patient is not on any blood thinners. She does take medicine for hypertension. 7. Opioid therapy is greater than 6 weeks; therefore, an opioid signed contract is on the chart. Her risk assessment tool is low. Functional assessment 30/70. 8. Recreational drug use, she denies. She is [place] [address] PAIN MANAGEMENT CONSULTATION Name: JAMES LAMB Room #: REG BERTRAM Lopez#: [id number] Admission: 11/16/18 ������������������ Attend Phys: Julia Harrington Discharge: ������������������ Date of : 56 Report #: [id number] drink alcohol. We did check the prescription monitoring system. The patient is filling appropriately for her medications and she is due for those today. There is a drug screen on her chart in the past year. She tells me she does safeguard her medications. PHYSICAL EXAMINATION: GENERAL: This is a well-developed, well-nourished black female who appears her stated age, placing her pain score today at 7/10. She is alert and orientated. HEENT: Normocephalic, atraumatic. Extraocular eye muscles are intact. Mucous membranes are moist. She has nasal cannula oxygen in place. NECK: Without adenopathy or JVD. EXTREMITIES: Upper extremity strength judged to be 5/5 in all major muscle groups. She is without kyphosis or scoliosis or lordosis. She does complain of tenderness across her back that radiates into her left groin of a burning sensation. Her lower extremity strength judged to be 5/5 in all major muscle groups. She walks with a normal gait. IMPRESSION: 1. Chronic pain with complex medical management. 2. Chronic obstructive pulmonary disease, on supplemental oxygen. 3. Cirrhosis. 4. Emphysema. 5. Low back pain. We reviewed the fact that opiate medications are being used to provide analgesia adequate to support activities of daily living, not attempting to achieve a specific pain score on the 0-10 Visual Analog Scale. The current opiate medications are providing sufficient analgesia to allow the patient to participate in activities of daily living. The patient is not exhibiting any aberrant behavior suggestive of drug diversion. The patient is not having any adverse reactions to medications. The patient is not suffering from daytime somnolence or mental acuity changes. The patient is managing opiate-induced constipation with appropriate nwnk-wgo-yczxmby agents and dietary considerations. The patient was counseled on concern for caution with operating a motor vehicle while using opiate medications. A physical exam was performed and the patient's functional status was evaluated. All patients with back pain were advised against the bed rest greater than 4 days and were advised to return to normal activities. Pain score assessment was noted and the treatment plan was reviewed with the patient. All current medications, both prescribed and OTC were reviewed and reconciled on the electronic medical record. Tobacco screening was accomplished and smoking cessation was advised when indicated. BMI was noted and diet/exercise modification was recommended for all patients following outside normal [facility] [address] [place] [address] PAIN MANAGEMENT CONSULTATION Name: JAMES LAMB Room #: REG CLI ..#: [id number] Admission: 11/16/18 ������������������ Attend Phys: Julia Harrington Discharge: ������������������ Date of : 56 Report #: [id number] parameters. I reviewed with the patient today their responsibilities to safeguard prescription medications, reviewed their responsibility to utilize medications only as prescribed by the physician. They are to seek and receive pain medications only from 1 physician group ( [facility]). They are to use 1 pharmacy and keep the clinic informed if they change pharmacies. Their responsibilities include making followup visits in a timely fashion and to avoid abrupt discontinuation of medication usage. Their responsibilities further include bringing their medications (bottles from the pharmacy with residual pills) to the visit for possible confirmation of pill counts and the patient understands it is their responsibility to submit to random drug screens to ensure both that the medications prescribed are present, and that no other controlled substances are present. All prescriptions provided today were generated electronically. PLAN: 1. We discussed treatment options with the patient today. The patient is doing quite well on her current medication regimen. Scripts given today for hydrocodone 7.5/325, #75. This places the patient at 18.5 morphine mEq per day well under the CDC guidelines. 2. The patient also given a script for meloxicam 15 mg, #30 with one additional refill. The patient does not take this on a daily basis. The patient encouraged to take it with some food to decrease stomach discomfort. 3. The patient will return in 2 months for followup visit. 4. The patient is seen with Dr. Fowler who collaborated care today and saw the patient as well. ��������������������������������������������� <ELECTRONICALLY SIGNED> ���������������������������������������� By: Julia Harrington ��������������������������������������������� 11/20/18 0756 [id number] Julia Harrington /nt
== END ==
LOC: PAIN 06:40
DX: M54.5 Low back pain (principal); J43.9 Emphysema, unspecified; K74.60 Unspecified cirrhosis of liver; Z79.899 Other long term (current) drug therapy

== ENCOUNTER → 2018-12-31 | Outpatient (CLI) | payer OTHER | LOC: RAD 09:44 | DX: J98.11 Atelectasis (principal); Z88.8 Allergy status to other drugs, medicaments and biological substances ==

== ENCOUNTER → 2019-01-11 | Outpatient (CLI) | payer OTHER ==
[~2019-01-11] VITALS: Ht 157.5 cm; Wt 57.2 kg
[2019-01-11 10:19] VITALS: BP 121/80
--- NOTE | 2019-01-11 10:39 | NUR ---
Pain Clinic Assessment: 1. History of Osteoarthritis: Not Applicable History of Rheumatoid Arthritis: Not Applicable 2. Height: 5 ft. 2 in. 157.5 cm. Weight: 126.0 lb. oz. 57.153 kg. Patient's BMI: 23.0 3. Vital Signs: BP: 121/80 Pulse: 113 Resp: 14 Temp: 02 Sat: 93 ECG Mon: 4. Pain Intensity: 8 5. Fall Risk: Dizziness: N Needs help standing or walking: N Fallen in the last 3 months: Y Fall risk comments: 6. Patient on Blood Thinner: None 7. History of Hypertension: N 8. Opioid Therapy greater than 6 weeks: Y Opiate Contract Signed: 01/18/17 9. Risk Assessment Tool Provided: LOW RISK 3 10. Functional Assessment Tool: 11. Recreational Drug Use: Never Drug Type: Tobacco Use: Former Smoker Tobacco Type: Amount or Packs/day: How Many Years: Alcohol Use: No Frequency: Quant:
--- NOTE | 2019-02-01 08:26 | HPC ---
[facility] [address] [place] [address] PAIN MANAGEMENT CONSULTATION Name: JAMES LAMB Room #: REG BERTRAM Lopez#: [id number] Admission: 01/11/19 Attend Phys: Bean Fowler MD Discharge: Date of : 56 Report #: [id number] THIS REPORT FOR: //name// CC: Jenna Fowler DATE OF SERVICE: 01/11/2019 CHIEF COMPLAINT: Here for medication renewal. HISTORY: The patient is a 58-year-old female who has been followed in the Pain Clinic because of chronic pain. She has pain involving her lumbosacral area. She suffers from spondylosis. Has pain involving the low back. This pain, which is chronic radiates down into her legs. She has a history of SI joint problems. She has undergone facet joint injections. She feels that her medications are helpful. She has returned today with the hopes of having her medications renewed. Feels that her pain has been getting worse over the last 2 days, feels that it is climbing up her thigh and involving her groin. Continues to take the Mullen as well as meloxicam. She is not getting the relief that she would like. She is not sleeping well. Has pain in the low back and down into the left groin, left hip and left thigh. Describes as a throbbing, pulling, sharp, and burning discomfort. Rates it as an 8/10. Walking as well as the worsening of the weather exacerbates her discomfort. ALLERGIES: DILANTIN, GEODON, CODEINE, ASPIRIN, HYDROMORPHONE. CURRENT MEDICATIONS: Hydrocodone 7.5 mg one p.o. q. 6 hours p.r.n., Benadryl, meloxicam 15 mg, hydrochlorothiazide, Ana María, Movantik, Flexeril, Advair, losartan, Linzess, Lamictal, Fosamax, Cogentin, Spiriva, omeprazole, Risperdal, Fioricet, alprazolam, albuterol, amlodipine, carbamazepine. PAIN CLINIC ASSESSMENT/PQRS: 1. The patient is not being treated for osteoarthritis or rheumatoid arthritis. 2. Height 5 feet 2 inches, weight 126 pounds, BMI is 23.0. 3. Vital Signs: Blood pressure 121/80, pulse 113, respiratory rate 14, room air saturation 93%. 4. Pain intensity, 10. 5. Fall risk. The patient has not fallen in the last 3 months. 6. Blood thinner. The patient is not on a blood thinning medication. 7. Hypertension. The patient is not being treated for hypertension. 8. Opioids greater than 6 weeks. The patient receives her medication from one source the Pain [facility]. 9. Risk assessment tool, low risk 3. 10. Functional assessment tool, . 11. Recreational drug use. The patient denies use of recreational drugs. 12. Tobacco: The patient is a former smoker. [address] [address] PAIN MANAGEMENT CONSULTATION Name: JAMES LAMB Room #: REG CLI Jessica#: [id number] Admission: 01/11/19 Attend Phys: Bean Fowler MD Discharge: Date of : 56 Report #: [id number] 13. Alcohol: The patient denies frequent use of alcoholic beverages. PHYSICAL EXAMINATION: GENERAL: The patient is a well-developed, well-nourished black female, appears her stated age. She is alert and oriented x 3. Her affect is appropriate. Speech is fluent. HEENT: Normocephalic, atraumatic. Extraocular eye muscles intact. Sclerae nonicteric. Mucous membranes are moist. NECK: Without bruits. The patient is receiving oxygen via nasal cannula. ABDOMEN: Nontender. Bowel sounds present. MUSCULOSKELETAL: Upper extremity muscle strength judged to be 5-/5 for the major muscle groups in the upper extremity. The patient has lower extremity muscle area is 5/5 for the major muscle groups. The patient is without significant scoliosis, kyphosis or lordosis. The patient continues to have pain in the left groin area. Has pain on the right side. She has chronic pain involving the low back area. IMPRESSION: 1. Chronic pain treated with complex medical management. The patient feels that her medications are helpful. They are less so since the weather has changed. 2. Hypertension. 3. Chronic obstructive pulmonary disease. 4. Emphysema. 5. Migraines without aura. 6. Seizures last one in 12/2015. 7. Osteoporosis, treated by her primary physician for osteoporosis. RECOMMENDATIONS: We discussed treatment options with the patient. At this juncture, we will continue with her current medical management. The patient is aware that opioid medications can be helpful in certain patients. She is aware that opioid medications can cause addiction in some patients. She does not feel that she is having any problems with addiction. She has taken her medications as prescribed. She has not shown addictive behavior. She is aware that last year 70,000 people as a result of overdosing of medications. She feels that this medication continues to afford her activities of daily living with less pain and discomfort. She is keeping her medications in a guarded area. She will call us if she has any problems. A script for her medications has been rewritten. She will continue with hydrocodone 7.5 mg 1 p.o. b.i.d. to t.i.d. She will also continue with Meloxicam 15 mg 1 p.o. b.i.d. She will monitor her GI tract because of the nonsteroidal. She will stop this medication should she start to have problems. We would like to thank you for letting us participate in her care. We will [address] [address] PAIN MANAGEMENT CONSULTATION Name: JAMES LAMB Room #: REG CLI Jigar.#: [id number] Admission: 01/11/19 Attend Phys: Bean Fowler MD Discharge: Date of : 56 Report #: [id number] continue to provide medications for this complex medical management using opioids. <ELECTRONICALLY SIGNED> By: Bean Fowler MD 02/01/19 0826 [id number] Bean Fowler MD /nt
== END ==
LOC: PAIN 06:50
DX: I10 Essential (primary) hypertension (principal); J43.9 Emphysema, unspecified; G43.909 Migraine, unspecified, not intractable, without status migrainosus; M48.10 Ankylosing hyperostosis [Forestier], site unspecified; Z88.8 Allergy status to other drugs, medicaments and biological substances; Z79.899 Other long term (current) drug therapy

== ENCOUNTER → 2019-02-25 | Outpatient (CLI) | payer OTHER | LOC: RAD 15:06 | DX: J44.9 Chronic obstructive pulmonary disease, unspecified (principal); J96.11 Chronic respiratory failure with hypoxia ==

== ENCOUNTER → 2019-03-08 | Outpatient (CLI) | payer OTHER ==
[~2019-03-08] VITALS: Ht 157.5 cm; Wt 56.5 kg
[2019-03-08 08:54] VITALS: BP 141/95
--- NOTE | 2019-03-08 09:19 | NUR ---
Pain Clinic Assessment: 1. History of Osteoarthritis: Not Applicable History of Rheumatoid Arthritis: Not Applicable 2. Height: 5 ft. 2 in. 157.5 cm. Weight: 124.6 lb. oz. 56.518 kg. Patient's BMI: 22.8 3. Vital Signs: BP: 141/95 Pulse: 105 Resp: 14 Temp: 02 Sat: 95 ECG Mon: 4. Pain Intensity: 6 5. Fall Risk: Dizziness: N Needs help standing or walking: N Fallen in the last 3 months: N Fall risk comments: 6. Patient on Blood Thinner: None 7. History of Hypertension: Y 8. Opioid Therapy greater than 6 weeks: Y Opiate Contract Signed: 01/18/17 9. Risk Assessment Tool Provided: LOW RISK 3 10. Functional Assessment Tool: 11. Recreational Drug Use: Never Drug Type: Tobacco Use: Former Smoker Tobacco Type: Amount or Packs/day: How Many Years: Alcohol Use: No Frequency: Quant:
--- NOTE | 2019-03-11 19:25 | HPC ---
[facility] [address] [place] [address] PAIN MANAGEMENT CONSULTATION Name: JAMES LAMB Room #: REG BERTRAM Lopez#: [id number] Admission: 03/08/19 Attend Phys: eBan Fowler MD Discharge: Date of : 56 Report #: [id number] THIS REPORT FOR: //name// CC: Jenna Fowler DATE OF SERVICE: 03/08/2019 CHIEF COMPLAINT: Here for medication renewal. I have got a cold and my medications are helpful. HISTORY: The patient is a 58-year-old female. As you may recall, she has chronic pain. She does have pain involving the lumbosacral area. She is having pain that radiates down in the lower portion of her back. She also has pain in the left and the right leg. She has noticed that since the weather has changed, it has gotten significantly colder. Her pain is much more problematic. She has recently come down with an upper respiratory infection. She does have a number of grandchildren. They are about 7 years of age and upwards. They have a cold and she feels that she may have gotten cold from them. Overall, things are going reasonably well. She is using oxygen 2 liters at bedtime. Uses 5 liters when she is up and mobile and active. She is not having any problems with her medications. She feels that the hydrocodone medications, continue to be helpful with her pain. ALLERGIES: DILANTIN, GEODON, CODEINE, ASPIRIN, HYDROMORPHONE. CURRENT MEDICATIONS: Hydrocodone 7.5 mg one p.o. q. 6 hours p.r.n., Benadryl, meloxicam 15 mg, hydrochlorothiazide, Ana María, Movantik, Flexeril, Advair, losartan, Linzess, Lamictal, Fosamax, Cogentin, Spiriva, omeprazole, Risperdal, Fioricet, alprazolam, albuterol, amlodipine, and carbamazepine. PAIN CLINIC ASSESSMENT/PQRS: 1. The patient is not being treated for osteoarthritis or rheumatoid arthritis. 2. Height 5 feet 2 inches, weight 124 pounds, BMI is 22.8. 3. Vital Signs: Blood pressure 141/95, pulse 105, respiratory rate 14, room air saturation 95%. 4. Pain intensity, 10/01. 5. Fall history: The patient has not fallen in the last 3 months. 6. Blood thinner. The patient is not on a blood thinning medication. 7. Hypertension. The patient is being treated for hypertension. 8. Opioids greater than 6 weeks. The patient receives medication from one source, the [facility]. 9. Risk assessment tool, low for opioid use. 10. Functional assessment tool, . 11. Recreational drug use: [place] [address] PAIN MANAGEMENT CONSULTATION Name: JAMES LAMB Room #: REG CLI ..#: [id number] Admission: 03/08/19 Attend Phys: Bean Fowler MD Discharge: Date of : 56 Report #: [id number] 12. Tobacco: The patient is a former smoker. 13. Alcohol: The patient rarely drinks alcoholic beverages. PHYSICAL EXAMINATION: GENERAL: The patient is a well-developed, well-nourished black female, appears her stated age. She is alert and oriented x 3. Her affect is appropriate. Speech is fluent. She is coughing on occasion. HEENT: Normocephalic, atraumatic. Extraocular eye muscles intact. Sclerae nonicteric. Mucous membranes are moist. The patient has a nasal cannula at 5 liters per minute. NECK: Without bruits. ABDOMEN: Nontender. Bowel sounds present. MUSCULOSKELETAL: The patient's upper extremity muscle strength judged to be 5-/5 for the major muscle groups in the upper extremity. The patient's lower extremity muscle strength is judged to be 5-/5 for the major muscle groups in the lower extremity. The patient complains of pain and discomfort in the right calf area and mid portion of her thigh with radiation down to the lower portion of her leg. The patient has had some pain in the left groin area. She also has pain and discomfort in the low back area. IMPRESSION: 1. Chronic pain treated with complex medical management using opioids. 2. Hypertension. 3. Chronic obstructive pulmonary disease. 4. Emphysema. 5. Migraines without aura. 6. Seizures last one in 2016. 7. Osteoporosis, treated by her primary. RECOMMENDATIONS: We discussed treatment options with the patient. At this juncture, we will continue with her opioid medications. She feels these medications are helpful. She is keeping her medications in a guarded area. She does have grandchildren have come over. She is not showing any signs of addiction. We have explained to the patient that opioids can become less effective over a period of time secondary to development of tolerance. She would like to have her medications continued. She is aware that opioids claims a number of patients lives over the years. A script for her medications of hydrocodone 7.5 mg 1 p.o. t.i.d. has been renewed. The patient will also continue with Meloxicam 15 mg 1 p.o. b.i.d. She will call us if she has any problems. She will monitor her stomach and GI tract secondary to use of nonsteroidal medications. [facility] [address] [place] [address] PAIN MANAGEMENT CONSULTATION Name: JAMES LAMB Room #: REG CLI M.R.#: [id number] Admission: 03/08/19 Attend Phys: Bean Fowlre MD Discharge: Date of : 56 Report #: [id number] We would like to thank you for letting us participate in her care. We hope she continues to improve. <ELECTRONICALLY SIGNED> By: Bean Fowler MD 03/11/19 1925 1022 06 Bean Fowler MD /nt
== END ==
LOC: PAIN 06:45
DX: G89.29 Other chronic pain (principal); I10 Essential (primary) hypertension; J44.9 Chronic obstructive pulmonary disease, unspecified; G43.009 Migraine without aura, not intractable, without status migrainosus; M81.0 Age-related osteoporosis without current pathological fracture; R56.9 Unspecified convulsions; Z79.891 Long term (current) use of opiate analgesic

== ENCOUNTER 2019-03-17 00:04 | Inpatient (IN) | payer OTHER ==
[~2019-03-17] VITALS: Ht 157.5 cm; Wt 54.9 kg
[2019-03-17] VITALS (7 sets, daily range): BP systolic 116–151; BP diastolic 72–86
[2019-03-17 01:01] LABS: ABSOLUTE NEUTROPHILS 10.4 thou/uL (1.4-8.2); BASOPHILS 0.4 % (0.0-2.0); EOSINOPHILS 1.8 % (0.0-3.0); HEMATOCRIT 35.7 % (37.0-47.0); HEMOGLOBIN 11.8 gm/dL (12.0-15.0); LYMPHOCYTES 15.4 % (24.0-44.0); MCH 30.3 pg (26.0-34.0); MCHC 32.9 g/dL (28.0-37.0); MONOCYTES 8.8 % (1.0-8.0); PLATELET COUNT 502 thou/uL (150-400); POLYS 73.6 % (36.0-66.0); RBC 3.89 mil/uL (4.20-5.00); RDW 13.6 % (10.5-14.5); WBC 14.1 thou/uL (4.0-11.0)
[2019-03-17 01:13] LABS: ANION GAP 7 mmol/L (7-16); BUN 11 mg/dL (7-18); CALCIUM 9.1 mg/dL (8.5-10.1); CHLORIDE 98 mmol/L (98-107); CO2 31 mmol/L (21-32); GLUCOSE 115 mg/dL (74-106); POTASSIUM 3.2 mmol/L (3.5-5.1); SODIUM 136 mmol/L (136-145)
[2019-03-17 01:22] LABS: TROPONIN-I <0.06 ng/mL (<0.06)
[2019-03-17] MEDS ORDERED: COLACE100 MG PO (05:48)
[2019-03-18 06:13] VITALS: BP 137/78
[2019-03-18 07:45] VITALS: BP 139/90
--- NOTE | 2019-03-18 07:54 | EKG ---
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 Counsellor: QUENTIN : 1960 Requested By: Claudia Denson Order Number: [id number] MD: Yusuf Sen Measurements Intervals [place] Rate: 113 P: 79 MI: 164 QRS: 72 QRSD: 78 T: 54 QT: 332 QTc: 456 Interpretive Statements Sinus tachycardia Poor R wave progression Compared to ECG 10/27/2013 18:08:08 No significant changes Electronically Signed On 03-18-2019 7:53:58 PROTECTION ANALYST by Yusuf Sen [email or web address] <ELECTRONICALLY SIGNED> By: Yusuf Sen MD, [facility] 03/18/19 0753 0015 001 Yusuf Sen MD, [facility] /EPI
[2019-03-18 11:50] VITALS: BP 142/95
[2019-03-18 17:03] VITALS: BP 143/90
[2019-03-18 19:59] VITALS: BP 129/82
[2019-03-19 04:28] VITALS: BP 136/95
[2019-03-19 07:43] VITALS: BP 124/89
[2019-03-19] MEDS ORDERED: DOXYCYCLINE HYC50 MG PO (11:42)
[2019-03-19] MEDS ORDERED: ROBITUSSIN100 MG/53 PO (11:45)
[2019-03-19] MEDS ORDERED: RAYOS5 MG PO (11:46)
[2019-03-19 12:14] VITALS: BP 124/89
[2019-03-19 12:27] VITALS: BP 124/89
[2019-03-19 13:40] VITALS: BP 124/89
== END 2019-03-19 15:06 | disposition home or self-care (01) | DRG 189 ==
LOC: ER 00:04 → 3W 02:21 → EROBS 02:21 → 3W 03:08 → ENTRNSPT 03-19 13:48 → EDTRNSPTSTS 03-19 13:51 → 3W 03-19 15:06
PROVIDERS: Emergency Medicine; ADMIT Hospitalist
DX: J96.21 Acute and chronic respiratory failure with hypoxia (principal); B37.0 Candidal stomatitis; I10 Essential (primary) hypertension; F31.9 Bipolar disorder, unspecified; G43.909 Migraine, unspecified, not intractable, without status migrainosus; G40.909 Epilepsy, unspecified, not intractable, without status epilepticus; E87.6 Hypokalemia; B34.9 Viral infection, unspecified; F41.9 Anxiety disorder, unspecified; K21.9 Gastro-esophageal reflux disease without esophagitis; G89.29 Other chronic pain; M54.9 Dorsalgia, unspecified; J43.2 Centrilobular emphysema; Z90.710 Acquired absence of both cervix and uterus; Z80.9 Family history of malignant neoplasm, unspecified; Z88.6 Allergy status to analgesic agent; Z88.5 Allergy status to narcotic agent; Z88.8 Allergy status to other drugs, medicaments and biological substances
CPT/HCPCS: 10879

== ENCOUNTER → 2019-05-03 | Outpatient (CLI) | payer OTHER ==
[~2019-05-03] VITALS: Ht 157.5 cm; Wt 55.1 kg
[~2019-05-03] MED LIST changes: +DOXYCYCLINE HYC50 MG PO; +RAYOS5 MG PO; +ROBITUSSIN100 MG/53 PO
[2019-05-03 09:29] VITALS: BP 124/70
--- NOTE | 2019-05-03 09:44 | NUR ---
Pain Clinic Assessment: 1. History of Osteoarthritis: SPINE History of Rheumatoid Arthritis: DENIES 2. Height: 5 ft. 2 in. 157.5 cm. Weight: 121.4 lb. oz. 55.067 kg. Patient's BMI: 22.2 3. Vital Signs: BP: 124/70 Pulse: 124 Resp: 12 Temp: 02 Sat: 92 ECG Mon: 4. Pain Intensity: 6 5. Fall Risk: Dizziness: N Needs help standing or walking: N Fallen in the last 3 months: N Fall risk comments: 6. Patient on Blood Thinner: None 7. History of Hypertension: Y 8. Opioid Therapy greater than 6 weeks: Y Opiate Contract Signed: 01/18/17 9. Risk Assessment Tool Provided: LOW RISK 3 10. Functional Assessment Tool: 11. Recreational Drug Use: Never Drug Type: Tobacco Use: Former Smoker Tobacco Type: Amount or Packs/day: How Many Years: Alcohol Use: Past use Frequency: Quant:
--- NOTE | 2019-05-22 08:36 | HPC ---
[facility] [place] [address] [place] [address] PAIN MANAGEMENT CONSULTATION Name: JAMES LAMB Room #: REG BERTRAM Lopez#: [id number] Admission: 05/03/19 Attend Phys: Bean Fowler MD Discharge: Date of : 56 Report #: [id number] THIS REPORT FOR: //name// CC: Jenna Fowler DATE OF SERVICE: 05/03/2019 CHIEF COMPLAINT: Here for medication renewal, things are going reasonably well. HISTORY: The patient is a 58-year-old female who has been followed in the pain clinic. As a recall, she has chronic pain in the lumbar area. She has undergone treatment for chronic pain involving the left and right leg. She feels that her medications at this juncture are helpful. She is rating her pain as a 6/10. She also has some pain in her shoulders as well as her left thigh and left hip. There is a throbbing aching component and burning discomfort to her pain. Pain is exacerbated with walking as well as with the change in weather we are experiencing. She has tried heat and medication as well as muscle relaxants and these are of some benefit. She has returned today with hopes of renewing her medications. Feels that the medications are helpful. She is not having any untoward problems with her medications. Her sensorium remains clear. ALLERGIES: DILANTIN, GEODON, CODEINE, ASPIRIN, HYDROMORPHONE. CURRENT MEDICATIONS: Hydrocodone 7.5 mg one p.o. q.4-6 hours, Benadryl, meloxicam 15 mg, hydrochlorothiazide, Ana María, Movantik, Flexeril, Advair, losartan, Linzess, Lamictal, Fosamax, Cogentin, Spiriva, omeprazole, Risperdal, Fioricet, alprazolam, albuterol, amlodipine, carbamazepine. PAIN CLINIC ASSESSMENT AND PQRS: 1. The patient is not being treated for osteoarthritis or rheumatoid arthritis. 2. Height 5 feet 2 inches, weight 121 pounds, BMI is 22.2. 3. Vital signs: Blood pressure 124/70, pulse 124, respiratory rate 12 breaths, temperature is 92.0. 4. Pain intensity 10/01. 5. Fall history: The patient has not fallen in the last 3 months. 6. Blood thinner. The patient is not on a blood thinning medication. 7. Hypertension. The patient is being treated for hypertension. 8. Opioids greater than 6 weeks. The patient received medication from one source, the pain clinic. 9. Risk assessment tool, low for opioid use. 10. Functional assessment tool . 11. Recreational drug use: The patient denies. 12. Tobacco: The patient is a former smoker. 13. Alcohol. The patient denies frequent use of alcoholic beverages. [address] [address] PAIN MANAGEMENT CONSULTATION Name: JAMES LAMB Room #: REG CLKesha Lopez#: [id number] Admission: 05/03/19 Attend Phys: Bean Fowler MD Discharge: Date of : 56 Report #: [id number] PHYSICAL EXAMINATION: GENERAL: The patient is a well-developed, well-nourished black female. Appears her stated age. She is alert and oriented x 3. Her affect is appropriate. Speech is fluent. HEENT: Normocephalic, atraumatic. Extraocular eye muscles intact. The patient is receiving oxygen via nasal cannula at 5 liters per minute. NECK: Without adenopathy or bruits. ABDOMEN: Nontender. LUNGS: Generally clear distant. MUSCULOSKELETAL: Upper extremity muscle strength judged to be 5-/5 for the major muscle groups in the upper extremity. Lower extremity muscle strength 5-/5 for the major muscle groups in the lower extremity. The patient complains of pain and discomfort in the right calf area and down in size with radiation down into the lower portion of her legs. The patient has some pain in the left groin area. Discomfort in the low back area. IMPRESSION: 1. Chronic pain treated with complex medical management using opioids. 2. Hypertension. 3. Chronic obstructive pulmonary disease. 4. Emphysema. 5. Migraines without aura. 6. Seizures, last in 2016. 7. Osteoporosis, treated by her primary. RECOMMENDATIONS: We discussed treatment options with the patient. At this juncture, we will continue with her medications. She feels that the medications are beneficial. She is taking opioids, but did not have any problems with her respirations. She is aware that opioid medications can become less effective as time goes on. Keeps her medications in a guarded area. We will continue with her medications. A script for hydrocodone 7.5 mg 1 p.o. b.i.d. to t.i.d. have been rewritten. The patient is given 75 tablets. She will also continue with the Mobic. She will monitor her GI tract and be cognizant of the possible problems with nonsteroidal anti-inflammatory medications on her gut. We would like to thank you for letting us participate in her care. We hope she continues to improve. <ELECTRONICALLY SIGNED> By: Bean Fowler MD 05/22/19 [id number] MD SUSAN Walsh
== END ==
LOC: PAIN 06:49
DX: Z76.0 Encounter for issue of repeat prescription (principal); M54.5 Low back pain; G89.29 Other chronic pain; I10 Essential (primary) hypertension; J43.9 Emphysema, unspecified; G40.909 Epilepsy, unspecified, not intractable, without status epilepticus; M81.0 Age-related osteoporosis without current pathological fracture; Z79.899 Other long term (current) drug therapy; Z79.82 Long term (current) use of aspirin; Z88.5 Allergy status to narcotic agent; Z79.891 Long term (current) use of opiate analgesic

== ENCOUNTER → 2019-05-27 | Outpatient (CLI) | payer OTHER ==
--- NOTE | 2019-05-27 10:08 | 2DMMODE ---
[facility] [address] [place] [address] 2 D/M-MODE ECHOCARDIOGRAM Name: JAMES LAMB Room #: REG [facility]..#: [id number] Admission: 05/27/19 Attend Phys: Nawaf Weller MD Discharge: Date of : 56 Report #: [id number] THIS REPORT FOR: cc: Jenna Olea MD, Karla L. MD Lundgren, Craig H. MD [facility] ~ THIS REPORT FOR: //name// APPROVED REPORT Study performed: 05/27/2019 09:23:29 EXAM: Comprehensive 2D, Doppler, and color-flow Echocardiogram Patient Location: Out-Patient Room #: Echo lab 2 Status: routine BSA: 1.56 HR: 100 bpm BP: 134/88 mmHg Rhythm: Tachycardia Other Information Study Quality: Good Indications COPD Dyspnea 2D Dimensions RVDd: 28.78 mm IVSd: 9.09 (7-11mm) LVOT Diam: 17.94 (18-24mm) LVDd: 34.87 mm PWd: 7.15 (7-11mm) Ascending Ao: 26.49 (22-36mm) LVDs: 25.75 (25-40mm) Aortic Root: 27.23 mm IVC: 11.00 mm Volumes Left Atrial Volume (Systole) Single Plane 4CH: 17.85 mL Single Plane 2CH: 19.66 mL LA ESV Index: 14.00 mL/m2 Aortic Valve AoV Peak Gregory.: 1.33 m/s AO Peak Gr.: 7.05 mmHg LVOT Max P.02 mmHg [facility] [address] [place] [address] 2 D/M-MODE ECHOCARDIOGRAM Name: JAMES LAMB Room #: REG CL [facility]#: [id number] Admission: 05/27/19 Attend Phys: Nawaf Weller MD Discharge: Date of : 56 Report #: [id number] LVOT Max V: 1.00 m/s TIM Vmax: 1.91 cm2 Mitral Valve E/A Ratio: 0.9 MV Decel. Time: 255.65 ms MV E Max Greogry.: 0.86 m/s MV A Gregory.: 0.99 m/s MV PHT: 74.14 ms IVRT: 106.11 ms Pulmonary Valve PV Peak Gregory.: 0.91 m/s PV Peak Gr.: 3.31 mmHg Pulmonary Vein P Vein S: 0.52 m/s P Vein A: 0.32 m/s P Vein D: 0.41 m/s P Vein A Dur.: 106.1 msec P Vein S/D Ratio: 1.27 Tricuspid Valve TR Peak Gregory.: 2.70 m/s TR Peak Gr.: 29.27 mmHg PA Pressure: 34.00 mmHg Left Ventricle The left ventricle is normal size. There is normal LV segmental wall motion. There is normal left ventricular wall thickness. Left ventricular systolic function is normal. The left ventricular ejection fraction is within the normal range. LVEF is 55-60%. Mild diastolic dysfunction is present (impaired relaxation pattern). Right Ventricle The right ventricle is normal size. The right ventricular systolic function is normal. Atria The left atrium size is normal. The right atrium size is normal. Aortic Valve The aortic valve is normal in structure. No aortic regurgitation is present. There is no aortic valvular stenosis. Mitral Valve The mitral valve is normal in structure. There is no mitral valve [facility] [place] [place] [address] 2 D/M-MODE ECHOCARDIOGRAM Name: JAMES LAMB Room #: REG [facility].#: [id number] Admission: 05/27/19 Attend Phys: Nawaf Weller MD Discharge: Date of : 56 Report #: [id number] regurgitation noted. No evidence of mitral valve stenosis. Tricuspid Valve The tricuspid valve is normal in structure. There is trace to mild tricuspid regurgitation. Estimated PAP 34 mmHg. There is mild pulmonary hypertension. Pulmonic Valve The pulmonary valve is normal in structure. There is no pulmonic valvular regurgitation. Great Vessels The aortic root is normal in size. IVC is normal in size and collapses >50% with inspiration. Pericardium There is no pericardial effusion. <Conclusion> Left ventricular systolic function is normal. There is normal LV segmental wall motion. LVEF is 55-60%. Mild diastolic dysfunction The aortic valve is normal in structure. No aortic regurgitation or stenosis. The mitral valve is normal in structure. No mitral valve regurgitation. There is trace to mild tricuspid regurgitation. Estimated pulmonary artery pressure of 34 mmHg. There is no pericardial effusion. <ELECTRONICALLY SIGNED> By: Yusuf Sen MD, FACC 05/27/19 1007 1007 [id number] Yusuf Sen MD, FACC /INF
== END ==
LOC: CV 08:42
DX: I36.1 Nonrheumatic tricuspid (valve) insufficiency (principal); J44.9 Chronic obstructive pulmonary disease, unspecified; I27.20 Pulmonary hypertension, unspecified

== ENCOUNTER → 2019-06-07 | Outpatient (CLI) | payer OTHER | LOC: CAT 10:22 | DX: Z12.2 Encounter for screening for malignant neoplasm of respiratory organs (principal); J43.9 Emphysema, unspecified; Z79.899 Other long term (current) drug therapy; Z87.891 Personal history of nicotine dependence ==

== ENCOUNTER → 2019-06-19 | Outpatient (CLI) | payer OTHER | LOC: RAD 12:44 | DX: J43.9 Emphysema, unspecified (principal); J20.9 Acute bronchitis, unspecified; J98.4 Other disorders of lung ==

== ENCOUNTER → 2019-06-28 | Outpatient (CLI) | payer OTHER ==
[~2019-06-28] VITALS: Ht 157.5 cm; Wt 54.3 kg
[2019-06-28 08:33] VITALS: BP 109/77
--- NOTE | 2019-06-28 08:52 | NUR ---
Pain Clinic Assessment: 1. History of Osteoarthritis: SPINE History of Rheumatoid Arthritis: DENIES 2. Height: 5 ft. 2 in. 157.5 cm. Weight: 119.8 lb. oz. 54.341 kg. Patient's BMI: 21.9 3. Vital Signs: BP: 109/77 Pulse: 129 Resp: 12 Temp: 02 Sat: 96 ECG Mon: 4. Pain Intensity: 8 5. Fall Risk: Dizziness: N Needs help standing or walking: N Fallen in the last 3 months: Y Fall risk comments: 6. Patient on Blood Thinner: None 7. History of Hypertension: Y 8. Opioid Therapy greater than 6 weeks: Y Opiate Contract Signed: 01/18/17 9. Risk Assessment Tool Provided: LOW RISK 3 10. Functional Assessment Tool: 11. Recreational Drug Use: Never Drug Type: Tobacco Use: Former Smoker Tobacco Type: Amount or Packs/day: How Many Years: Alcohol Use: Past use Frequency: Quant:
--- NOTE | 2019-07-09 10:01 | HPC ---
[facility] [address] [address] PAIN MANAGEMENT CONSULTATION Name: ROSANA AGUILARJAMES FARNSWORTH Room #: REG BERTRAM RoaJustineKate.#: [id number] Admission: 06/28/19 Attend Phys: Bean Fowler MD Discharge: Date of : 56 Report #: [id number] THIS REPORT FOR: cc: Jenna Olea MD,Jenna Fowler,Bean Gregory MD ~ CC: Jenna Fowler DATE OF SERVICE: 06/28/2019 CHIEF COMPLAINT: Here for medications and things are going reasonably well. HISTORY: The patient is a 59-year-old female who has been followed in the pain clinic because of chronic pain in lumbar area. She has undergone treatments involving pain in her left and right leg. She feels her medications at this juncture, continue to be helpful. She rates her pain as an 8/10 today. She was up last evening. She was making/cooking for a . In addition to all the washing and cleaning associated with this, she has noticed an increase in her pain and discomfort. She notes that the change in weather exacerbates her discomfort as well. She has returned today with hopes of renewing her medications. She also has some stress in regards to her grandson, living with her at this juncture, he is 21 years of age. ALLERGIES: DILANTIN, GEODON, CODEINE, ASPIRIN, HYDROCODONE, AND HYDROMORPHONE. CURRENT Hydrocodone 7.5 mg one p.o. q. 4-6 hours, Benadryl, meloxicam 15 mg, hydrochlorothiazide, Ana María, Movantik, Flexeril, Advil, losartan, Linzess, Lamictal, Fosamax, Cogentin, Spiriva, omeprazole, Risperdal, Fioricet, alprazolam, albuterol, amlodipine, and carbamazepine. PAIN CLINIC ASSESSMENT AND PQRS: 1. The patient is not being treated for osteoarthritis or rheumatoid arthritis. 2. Height 5 feet 2 inches, weight 119 pounds, BMI is 21.9. 3. Vital signs: Blood pressure 109/77, pulse 129, respiratory rate is 16, saturation is 96%. The patient is wearing nasal cannula. 4. Pain intensity 12/01. 5. Fall history: The patient has not fallen in the last 3 months. 6. Blood thinner. The patient is not on a blood thinning medication. 7. Hypertension. The patient is being treated for hypertension. 8. Opioids. The patient receives medication from one source the pain clinic. 9. Risk assessment tool, low for opioid use. 10. Functional assessment tool, . 11. Recreational drug use: The patient denies. 12. Tobacco: The patient denies use of tobacco. [place] [address] PAIN MANAGEMENT CONSULTATION Name: JAMES LAMB Room #: REG BERTRAM Lopez#: [id number] Admission: 06/28/19 Attend Phys: Bean Fowler MD Discharge: Date of : 56 Report #: [id number] 13. Alcohol. The patient denies frequent use of alcoholic beverages. PHYSICAL EXAMINATION: GENERAL: The patient is a well-developed, well-nourished black female, appears her stated age. She is alert and oriented x 3. Her affect is appropriate. Speech is fluent. HEENT: Normocephalic, atraumatic. Extraocular eye muscles intact. The patient has a nasal cannula in place with 5 liters per minute of oxygen. NECK: Without adenopathy or JVD. ABDOMEN: Nontender. LUNGS: Generally clear, but distant. MUSCULOSKELETAL: Upper extremity muscle strength judged to be 5-/5 for the major muscle groups in the upper extremity. Lower extremity muscle strength 5-/5. The patient does have some pain and discomfort that radiates down into the right calf and down into the lower portion of her leg. She has some pain in the left groin area. Some discomfort in low back area. IMPRESSION: 1. Chronic pain treated with complex medical management using opioids. 2. Hypertension. 3. Chronic obstructive pulmonary disease, on oxygen. 4. Emphysema. 5. Migraine headaches without aura. 6. Seizures on 05/25/2015, last event. 7. Osteoporosis, treated by primary physician. RECOMMENDATIONS: We discussed treatment options with the patient. At this juncture, we will continue with her medications. A script for her medications have been rewritten. She will continue with the meloxicam 15 mg b.i.d. daily. She will also continue with hydrocodone 7.5 mg 1 p.o. b.i.d. to t.i.d. A script for her medications for the next 2 months have been provided. She will call us if she has any concerns. We again discussed the use of opioids. She feels these medications are beneficial. They enable her to engage in activities, she would not be able to without their use. She is aware that opioid medications can become less effective as time goes on. She keeps her medications in a guarded area. We will renew her medications. A script for these medications has been rewritten as directed above. We would like to thank you for letting us participate in her care. She will call us if she has any concerns. <ELECTRONICALLY SIGNED> By: Bean Fowler MD 07/09/19 1001 [id number] [id number] Bean Fowler MD /[facility]
== END ==
LOC: PAIN 06:43
DX: G89.29 Other chronic pain (principal); M54.5 Low back pain; I10 Essential (primary) hypertension; J43.9 Emphysema, unspecified; G43.909 Migraine, unspecified, not intractable, without status migrainosus; M81.0 Age-related osteoporosis without current pathological fracture; Z88.8 Allergy status to other drugs, medicaments and biological substances; Z68.21 Body mass index [BMI] 21.0-21.9, adult; Z79.899 Other long term (current) drug therapy

== ENCOUNTER → 2019-07-23 | Outpatient (CLI) | payer OTHER ==
[~2019-07-23] MED LIST changes: +PLAVIX 75 MG TA75 MG PO
[2019-07-23 10:50] LABS: ABSOLUTE NEUTROPHILS 4.4 thou/uL (1.4-8.2); BASOPHILS 1.1 % (0.0-2.0); HEMATOCRIT 44.2 % (37.0-47.0); HEMOGLOBIN 14.6 gm/dL (12.0-15.0); LYMPHOCYTES 31.9 % (24.0-44.0); MCH 30.4 pg (26.0-34.0); MCV 92.2 fL (80.0-100.0); PLATELET COUNT 397 thou/uL (150-400); RBC 4.79 mil/uL (4.20-5.00); RDW 14.8 % (10.5-14.5); WBC 8.2 thou/uL (4.0-11.0)
[2019-07-23 10:58] LABS: CALCIUM 9.2 mg/dL (8.5-10.1); CREATININE 0.7 mg/dL (0.6-1.0); POTASSIUM 4.2 mmol/L (3.5-5.1)
== END ==
LOC: RAD 09:57
PROVIDERS: ATTEND Pediatrics
DX: J44.9 Chronic obstructive pulmonary disease, unspecified (principal)

== ENCOUNTER → 2019-08-23 | Outpatient (CLI) | payer OTHER ==
[~2019-08-23] VITALS: Ht 157.5 cm; Wt 54.3 kg
[~2019-08-23] MED LIST changes: -PLAVIX 75 MG TA75 MG PO
[2019-08-23 09:05] VITALS: BP 149/97
--- NOTE | 2019-08-23 09:15 | NUR ---
Pain Clinic Assessment: 1. History of Osteoarthritis: SPINE History of Rheumatoid Arthritis: DENIES 2. Height: 5 ft. 2 in. 157.5 cm. Weight: 119.8 lb. oz. 54.341 kg. Patient's BMI: 21.9 3. Vital Signs: BP: 149/97 Pulse: 119 Resp: 16 Temp: 02 Sat: 97 ECG Mon: 4. Pain Intensity: 7 5. Fall Risk: Dizziness: N Needs help standing or walking: N Fallen in the last 3 months: N Fall risk comments: 6. Patient on Blood Thinner: None 7. History of Hypertension: Y 8. Opioid Therapy greater than 6 weeks: Y Opiate Contract Signed: 01/18/17 9. Risk Assessment Tool Provided: LOW RISK 3 10. Functional Assessment Tool: 11. Recreational Drug Use: Never Drug Type: Tobacco Use: Former Smoker Tobacco Type: Amount or Packs/day: How Many Years: Alcohol Use: Past use Frequency: Quant:
--- NOTE | 2019-09-04 14:06 | HPC ---
[facility] [address] PAIN MANAGEMENT CONSULTATION Name: ROSANA AGUILARPEACENicanorJAMES RONY Room #: REG BERTRAM RoaJustineKate.#: [id number] Admission: 08/23/19 Attend Phys: Bean Fowler MD Discharge: Date of : 56 Report #: [id number] THIS REPORT FOR: cc: Jenna Olea MD,Jenna Fowler,Bean Gregory MD ~ CC: Jenna Fowler DATE OF SERVICE: 08/23/2019 CHIEF COMPLAINT: Here for medications. HISTORY: The patient is a 59-year-old female who has been followed in the pain clinic because of chronic back pain. She still has pain and discomfort that radiates down into her legs. She has some discomfort in her shoulders and in the low back area. She describes it as a chronic discomfort. There is an aching component of it. There is throbbing. Notes that the pain is worse when she walks. It improves with use of heat. Her medications help. Relaxation is beneficial. She is having some increased difficulty with breathing at this point. She is on oxygen at about 2.5 liters per minute. She is concerned about the COVID-19 pandemic. She has been staying at home. ALLERGIES: DILANTIN, GEODON, CODEINE, ASPIRIN, HYDROCODONE, HYDROMORPHONE. CURRENT MEDICATIONS: Hydrocodone 7.5 mg one p.o. every 4-6 hours, Benadryl, meloxicam 15 mg, hydrochlorothiazide, Ana María, Movantik, Flexeril, Advil, losartan, Linzess, Lamictal, , Cogentin, Spiriva, omeprazole, Risperdal, Fioricet, alprazolam, albuterol, amlodipine, carbamazepine. PAIN CLINIC ASSESSMENT/PQRS: 1. The patient is not being treated for rheumatoid arthritis. Does have some arthritic changes in the low back area. 2. Height 5 feet 2 inches, weight 119 pounds, BMI is 21.9. 3. Vital signs: Blood pressure 149/97, pulse , there is no temperature taken, saturation 97%. 4. Pain intensity 10/31. 5. Fall history: The patient has not fallen in the last 3 months. 6. Blood thinner. The patient is not on a blood thinning medication. 7. Hypertension. The patient is being treated for hypertension. 8. Opioids greater than 6 weeks. The patient receives medication from one source the pain clinic. 9. Risk assessment tool, low for opioid use. 10. Functional assessment tool, . 11. Recreational drug use. The patient denies. 12. Tobacco: The patient is a former smoker. [address] [address] PAIN MANAGEMENT CONSULTATION Name: JAMES LAMB Room #: REG BERTRAM Lopez#: [id number] Admission: 08/23/19 Attend Phys: Bean Fowler MD Discharge: Date of : 56 Report #: [id number] 13. Alcohol. The patient denies use of alcoholic beverages. PHYSICAL EXAMINATION: GENERAL: The patient is a well-developed, well-nourished black female, appears her stated age. She is alert and oriented x 3. Her affect is appropriate. Speech is fluent. HEENT: Normocephalic, atraumatic. Extraocular eye muscles intact. The patient is wearing a nasal cannula with about 5 liters of oxygen per minute. NECK: Without adenopathy or JVD. ABDOMEN: Nontender. LUNGS: The patient does seem somewhat short of breath. She requires few minutes to sit before she is able to feel that she is "caught of breath." MUSCULOSKELETAL: Upper extremity muscle strength judged to be 5-/5 for the major muscle groups in the upper extremity. Lower extremity muscle strength 5-/5. The patient does have some pain and discomfort, which she describes radiating down her calf and into her leg on the right, has some low back pain. IMPRESSION: 1. Chronic pain treated with a complex medical management using opioids. 2. Hypertension. 3. Chronic obstructive pulmonary disease, on chronic oxygen. 4. Emphysema. 5. Migraine headaches without aura. 6. Seizures last 05/25/2015. 7. Osteoporosis, treated by primary physician. RECOMMENDATIONS: We discussed treatment options with the patient. At this juncture, we will continue with her medications. She finds that the meloxicam is helpful. She feels that the hydrocodone 7.5 mg 1 p.o. t.i.d. is helpful. She will be provided with a script for the next 2 months. Because of the COVID-19 virus. The patient may elect to use teleconferencing. She is extremely short of breath today. If she were to contact/become infected with COVID, she might find it quite difficult infection to overcome. We would like to thank you for letting us to participate in her care. We hope she continues to improve. <ELECTRONICALLY SIGNED> By: Bean Fowler MD 09/04/19 1406 [id number] Bean Fowler MD /PMT
== END ==
LOC: PAIN 07:18
DX: M54.5 Low back pain (principal); I10 Essential (primary) hypertension; J43.9 Emphysema, unspecified; R51 Headache; G40.89 Other seizures; M81.0 Age-related osteoporosis without current pathological fracture; F11.20 Opioid dependence, uncomplicated; Z88.1 Allergy status to other antibiotic agents; Z88.3 Allergy status to other anti-infective agents; Z88.5 Allergy status to narcotic agent; Z88.8 Allergy status to other drugs, medicaments and biological substances; Z79.811 Long term (current) use of aromatase inhibitors; Z79.899 Other long term (current) drug therapy

== ENCOUNTER → 2019-10-21 | Outpatient (CLI) | payer OTHER ==
[~2019-10-21] MED LIST changes: +PLAVIX 75 MG TA75 MG PO
--- NOTE | 2019-10-30 15:46 | HPC ---
[facility] [place] [address] PAIN MANAGEMENT CONSULTATION Name: ROSANA ALICEAJAMES RONY Room #: REG BERTRAM Kimball.#: [id number] Admission: 10/21/19 Attend Phys: Bean Fowler MD Discharge: Date of : 56 Report #: [id number] THIS REPORT FOR: cc: Jenna Olea MD,Jenna Fowler,Bean Gregory MD ~ CC: Jenna Fowler DATE OF SERVICE: 10/21/2019 TELE-MED VISIT CHIEF COMPLAINT: We have spoken with the patient. She is aware that this is a Tele Medicine visit. She agrees to proceed. HISTORY: The patient is a 59-year-old female who has severe pulmonary disease. She is unable to venture out much because of the COVID-19. She would like to continue with her medications. She rates her pain as a 5/10. It continues to be problematic and radiates down into her legs. She also has some discomfort in her back. There is a throbbing component to her pain. She does use heat to help with pain and discomfort. She is on oxygen 2.5 liters up to higher levels when needed. She is still concerned about the COVID-19 pandemic. She has been staying at home. She would like to have her medications renewed. Note, things for the most part have been stable. ALLERGIES: DILANTIN, GEODON, CODEINE, ASPIRIN, AND HYDROMORPHONE. CURRENT MEDICATIONS: Hydrocodone 7.5 mg one p.o. q 4-6 hours, Benadryl, meloxicam 15 mg, hydrochlorothiazide, Ana María, Movantik, Flexeril, Advil, losartan, Linzess, Lamictal, Cogentin, Spiriva, omeprazole, Risperdal, Fioricet, alprazolam, albuterol, amlodipine, and carbamazepine. PAIN CLINIC ASSESSMENT/PQRS: 1. The patient is not being treated for rheumatoid arthritis. She does have some arthritic changes in her low back area. 2. Last height 5 feet 2 inches, weight 119 pounds, BMI is 21. 3. Pain intensity, 5/10. 4. Fall history: The patient has not fallen in the last 3 months. 5. Blood thinner. The patient is not on a blood thinning medication. 6. Hypertension. The patient is being treated for hypertension. 7. Opioids greater than 6 weeks. The patient receives medication from the source, pain clinic. 8. Risk assessment tool, low for opioid use. 9. Functional assessment tool, . 10. Recreational drug [place] [address] PAIN MANAGEMENT CONSULTATION Name: JAMES LAMB Room #: REG CLKesha Lopez#: [id number] Admission: 10/21/19 Attend Phys: Bean Fowler MD Discharge: Date of : 56 Report #: [id number] 11. Tobacco: The patient is a former smoker. 12. Alcohol. The patient denies use of alcoholic beverages. REVIEW OF SYSTEMS: CONSTITUTIONAL SYMPTOMS: ____. EYES, EARS, NOSE AND THROAT: Unremarkable. CARDIOVASCULAR: No new cardiovascular problems. RESPIRATORY: Continued shortness of breath, with up to 6 liters of oxygen via nasal cannula. GASTROINTESTINAL: Nontender. GENITOURINARY: No new changes. MUSCULOSKELETAL: Generally some weakness in the upper and lower extremities ____ sharper in lower extremities. PSYCHIATRIC: No psychiatric changes but the patient is nervous secondary to the COVID-19 pandemic. ENDOCRINE: No new changes. HEMATOLOGIC/LYMPHATIC: No new changes. ALLERGIC/IMMUNOLOGIC: No new skin changes. IMPRESSION: 1. Chronic pain with complex medical management using opioids. 2. Hypertension. 3. Chronic obstructive pulmonary disease with chronic oxygen use. 4. Emphysema. 5. Migraine headache without aura. 6. Seizures last experienced on 05/25/2015. 7. Osteoporosis, treated by primary physician. RECOMMENDATIONS: We discussed treatment options with the patient. At this juncture, we will continue with her medications. A script for her medications has been provided. She will continue with hydrocodone 7.5 mg 1 p.o. b.i.d., total of 75 tablets have been provided. The patient has been given a 2-month supply. She will call us if she has any concerns. The patient has also been given a script for meloxicam. She will monitor her GI tract. Should she note some increased discomfort, she will stop taking this medication. She is aware that opioid medications can become less effective as time goes on. She has taken her medication as prescribed. She has not shown any signs of addiction. We would like to thank you for letting us participate in her care. We hope she continues to improve. <ELECTRONICALLY SIGNED> By: Bean Fowler MD 10/30/19 1546 [id number] Bean Fowler MD /[facility]
== END ==
LOC: TELEPC 06:51
PROVIDERS: ATTEND Anesthesiology Pain Medicine
DX: J43.9 Emphysema, unspecified (principal); M81.0 Age-related osteoporosis without current pathological fracture; G43.909 Migraine, unspecified, not intractable, without status migrainosus; I10 Essential (primary) hypertension; R56.9 Unspecified convulsions; G90.50 Complex regional pain syndrome I, unspecified

== ENCOUNTER → 2019-12-20 | Outpatient (CLI) | payer OTHER ==
[~2019-12-20] MED LIST changes: +MELOXICAM15 MG PO
--- NOTE | 2019-12-23 15:08 | HPC ---
[facility] [place] [address] PAIN MANAGEMENT CONSULTATION Name: JAMES LAMB Room #: REG [facility] Jigar.#: [id number] Admission: 12/20/19 Attend Phys: Julia Harrington Discharge: Date of : 56 Report #: [id number] THIS REPORT FOR: cc: Jenna Olea MD, Karla L. MD Hocker, Amanda CNS ~ CC: Shawn Fowler MD DATE OF SERVICE: 12/20/2019 CHIEF COMPLAINT: Low back pain. HISTORY OF PRESENT ILLNESS: This is a telemedicine appointment that I am speaking with via the telephone due to the coronavirus the patient has consented for. The patient does have severe pulmonary issues, so she is at home. We spoke for greater than 20 minutes for this Telemed appointment. HISTORY OF PRESENT ILLNESS: This is a 59-year-old female who continues to complain of low back pain, rating it a pain score of 5/10 today. She reports to me that she has not taken her hydrocodone in the last few days because she was trying to have her medicine align on Fridays per her request, so therefore she has not taken her medications in the past 3 days; therefore, her pain is slightly elevated. Normally, she feels that her pain is well controlled with her current hydrocodone therapy as well as her meloxicam. She denies any problems with constipation or daytime somnolence as a result of her medications. At times, her pain does radiate into her legs bilaterally, but as I stated not today. It is a throbbing component to her pain. She feels that heat is also beneficial. She continues to wear 2 liters of oxygen. She is being very careful at home. She does have a grandson that is 21 that lives with her. She reports that he does try to be careful too because he knows that she is at risk for the COVID virus. Today, she would like her medications refilled and she is hopeful to be able to come to the appointment in February. ALLERGIES: DILANTIN, GEODON, CODEINE, ASPIRIN, AND HYDROMORPHONE. CURRENT MEDICATIONS: Hydrocodone 7.5/325, Benadryl, meloxicam, hydrochlorothiazide, Ana María, Movantik, Flexeril, Advil, losartan, Linzess, Lamictal, Cogentin, Spiriva, omeprazole, Risperdal, Fioricet, alprazolam, albuterol, amlodipine and oxcarbazepine. PQRS: 1. She is treated for arthritic changes in her lower back. She is not treated for rheumatoid arthritis. 2. We did not do vital signs or height and weight since this is a Telemed appointment. 3. Pain score is 5/10[place] [address] PAIN MANAGEMENT CONSULTATION Name: JAMES LAMB Room #: REG [facility] Jigar.#: [id number] Admission: 12/20/19 Attend Phys: Julia Harrington Discharge: Date of : 56 Report #: [id number] 4. Fall history. She has not fallen in the last 3 months. 5. The patient is not on any blood thinners and is being treated for hypertension. 6. Opioid therapy is greater than 6 weeks; therefore, an opioid signed contract is on her chart. Risk assessment is low. Functional assessment is 30/70. 7. Recreational drug use, she denies. She is not a smoker and does not drink alcohol. She is a former smoker. PHYSICAL EXAMINATION: GENERAL: Review of systems due to the Telemed appointment she is alert and oriented, answering my questions appropriately via the telephone. Placing her current pain score at 5/10. The patient states she wears 2 liters nasal cannula at all times. MUSCULOSKELETAL: Pain is located across her lumbar spine. Currently, she reports no radicular symptoms. IMPRESSION: 1. Chronic pain with complex medical management utilizing opioids. 2. Hypertension. 3. Chronic obstructive pulmonary disease with chronic opioid use. 4. Emphysema. 5. Osteoporosis. We reviewed the fact that opiate medications are being used to provide analgesia adequate to support activities of daily living, not attempting to achieve a specific pain score on the 0-10 Visual Analog Scale. The current opiate medications are providing sufficient analgesia to allow the patient to participate in activities of daily living. The patient is not exhibiting any aberrant behavior suggestive of drug diversion. The patient is not having any adverse reactions to medications. The patient is not suffering from daytime somnolence or mental acuity changes. The patient is managing opiate-induced constipation with appropriate joks-plr-pjafrgf agents and dietary considerations. The patient was counseled on concern for caution with operating a motor vehicle while using opiate medications. PLAN: 1. We discussed treatment options with the patient today. The patient states she has not taken her medications for the past 3 days, trying to get them on a schedule of filling on Fridays. I encouraged the patient that we can fill these on any days of the week. We would prefer her not go without her pain medication and her pain increases. The patient verbalizes understanding. We will have Dr. Xu Fowler send medications to her pharmacy today for a 2-month supply of her hydrocodone 7.5 #75. 2. I will refill her meloxicam that she takes once a day as well. She is not having any problems with GI distress or complications as a result of this medicine. [facility] [address] [place] [address] PAIN MANAGEMENT CONSULTATION Name: JAMES LAMB Room #: REG CL M.R.#: [id number] Admission: 12/20/19 Attend Phys: Julia Harrington Discharge: Date of : 56 Report #: [id number] 3. The patient does complain of some constipation. She also reports she is out of her Linzess that typically controls her constipation without any difficulty. She will call her primary care doctor for this medicine. 4. The patient is seen in collaboration today with Dr. Xu Fowler for this Telemed appointment. <ELECTRONICALLY SIGNED> By: Julia Harrington 12/23/19 [id number] [id number] Julia Harrington /nt
== END ==
LOC: TELEPC 06:50 → PAIN 14:11
PROVIDERS: ATTEND Clinical Nurse Specialist Adult Health
DX: M81.0 Age-related osteoporosis without current pathological fracture (principal); J43.9 Emphysema, unspecified; I10 Essential (primary) hypertension; G89.29 Other chronic pain; Z88.6 Allergy status to analgesic agent; Z88.5 Allergy status to narcotic agent; Z88.8 Allergy status to other drugs, medicaments and biological substances; Z79.899 Other long term (current) drug therapy; Z79.891 Long term (current) use of opiate analgesic

== ENCOUNTER → 2020-02-14 | Outpatient (CLI) | payer OTHER ==
--- NOTE | 2020-02-17 09:39 | HPC ---
[facility] [address] [place] [address] PAIN MANAGEMENT CONSULTATION Name: JAMES LAMB Room #: REG [facility] Jigar.#: [id number] Admission: 02/14/20 Attend Phys: Julia Harrington Discharge: Date of : 56 Report #: [id number] CC: Julia Olea DATE OF SERVICE: 02/14/2020 This is a telemedicine appointment due to the patient's respiratory status in the COVID outbreak that we discussed from 10:40-11:00. The patient has consented for this appointment. CHIEF COMPLAINT: Low back pain. HISTORY OF PRESENT ILLNESS: This is a very pleasant 59-year-old female who I am speaking with via the telephone. The patient does not have access to an audio visual device. Today, she is reporting her pain at a 6/10 in her lower back. She describes it as a constant ache, worse with movement and walking, occasionally lying down will help relieve some of her discomfort, but she finds most frequently her meds are most beneficial. She complains of significant constipation and does need to use Movantik, Linzess and a stool softener on a fairly regular basis. She finds the medication enables her to be as active as she would like though her activity has been limited since the COVID outbreak and she is at home most of the time. Her respiratory status per her report is getting worse as well and wears oxygen at 5 liters during the day and 2 liters at night. The patient does report she has recently started prednisone and antibiotics for her respiratory issues. She was not diagnosed with pneumonia per her report and has noticed significant problems with breathing. Today, she is requesting refills of her medication. ALLERGIES: DILANTIN, GEODON, CODEINE, ASPIRIN, and HYDROMORPHONE. MEDICATIONS: Hydrocodone 7.5/325, Benadryl, meloxicam, Ana María, Movantik, Flexeril, Advil, losartan, Linzess, Lamictal, Cogentin, Spiriva, omeprazole, Risperdal, Fioricet, alprazolam, albuterol, amlodipine, oxcarbazepine, prednisone. PQRS: 1. She is treated for arthritic changes in her lumbar spine. She is not treated for rheumatoid arthritis. This is a telemedicine appointment, so that no vital signs or height and weight were taken. 2. Pain score is 6/10. 3. Fall risk. Denies falls in the past 3 months. 4. The patient is currently not on any blood thinners, but does take medicines for hypertension. Her opioid therapy is greater than 6 weeks; therefore, an opioid signed contract is on the chart. Risk assessment is low. Functional assessment is 30/70. 5. Recreational drug use, she denies. She is not a smoker and does not drink alcohol. She is a former smoker. PHYSICAL EXAMINATION: This is a review of systems due to telemed appointment. She is alert and oriented, answering all my questions appropriately via the telephone placing her current pain score at 6/10. Per her report she is wearing oxygen per nasal cannula at 5 liters. She has difficulty breathing, but reports no cough present. Pain is located in her lower back with no radicular symptoms per her report today. IMPRESSION: 1. Chronic pain with complex medical management, utilizing opioids. 2. Hypertension. 3. Chronic obstructive pulmonary disease, on supplemental oxygen. 4. Emphysema. 5. Osteoporosis. We reviewed the fact that opiate medications are being used to provide analgesia adequate to support activities of daily living, not attempting to achieve a specific pain score on the 0-10 Visual Analog Scale. The current opiate medications are providing sufficient analgesia to allow the patient to participate in activities of daily living. The patient is not exhibiting any aberrant behavior suggestive of drug diversion. The patient is not having any adverse reactions to medications. The patient is not suffering from daytime somnolence or mental acuity changes. The patient is managing opiate-induced constipation with appropriate atlg-jbj-lhisipp agents and dietary considerations. The patient was counseled on concern for caution with operating a motor vehicle while using opiate medications. A physical exam was performed and the patient's functional status was evaluated. All patients with back pain were advised against the bed rest greater than 4 days and were advised to return to normal activities. Pain score assessment was noted and the treatment plan was reviewed with the patient. All current medications, both prescribed and OTC were reviewed and reconciled on the electronic medical record. Tobacco screening was accomplished and smoking cessation was advised when indicated. BMI was noted and diet/exercise modification was recommended for all patients following outside normal parameters. I reviewed with the patient today their responsibilities to safeguard prescription medications, reviewed their responsibility to utilize medications only as prescribed by the physician. They are to seek and receive pain medications only from 1 physician group ( [facility]). They are to use 1 pharmacy and keep the clinic informed if they change pharmacies. Their responsibilities include making followup visits in a timely fashion and to avoid abrupt discontinuation of medication usage. Their responsibilities further include bringing their medications (bottles from the pharmacy with residual pills) to the visit for possible confirmation of pill counts and the patient understands it is their responsibility to submit to random drug screens to ensure both that the medications prescribed are present, and that no other controlled substances are present. All prescriptions provided today were generated electronically. PLAN: 1. We discussed treatment options with the patient. At this juncture, we will continue her on her medications of hydrocodone 7.5/325, 2-3 tablets a day. The patient was provided scripts sent electronically by Dr. Fowler for 75 tablets for this month and release in 4 weeks. The patient will also continue on her meloxicam. 2. The patient will be sent a script for her meloxicam 15 mg. She does report some GI discomfort and has been taking it on an empty stomach. We did educate the patient to take this with meals. If she does not eat breakfast than encouraged her to take it with lunch or dinner. The patient states she will change the time she does take this medication. 3. We discussed her ongoing respiratory issues and worried about COVID. She has received her pneumonia vaccination, but not a flu vaccination. She continues to stay safe at home, limiting her visitation with family. We will allow her to have a telemedicine appointment in March and then hopefully in May she may come to an appointment in our clinic. The patient is seen today in collaboration with Dr. Fowler. <ELECTRONICALLY SIGNED> By: Julia Harrington 02/17/20 0939 [id number] Julia Harrington /nt
== END ==
LOC: TELEPC 09:52
PROVIDERS: ATTEND Clinical Nurse Specialist Adult Health
DX: M54.5 Low back pain (principal); I10 Essential (primary) hypertension; J43.9 Emphysema, unspecified; M81.0 Age-related osteoporosis without current pathological fracture; Z79.899 Other long term (current) drug therapy

== ENCOUNTER → 2020-04-23 | Outpatient (CLI) | payer OTHER | LOC: RAD 09:24 | PROVIDERS: ATTEND Internal Medicine Pulmonary Disease | DX: R06.02 Shortness of breath (principal) ==

== ENCOUNTER → 2020-05-08 | Outpatient (CLI) | payer OTHER | LOC: TELEPC 06:57 → PAIN 12:59 → TELEPC 13:07 | PROVIDERS: ATTEND Clinical Nurse Specialist Adult Health | DX: Z76.0 Encounter for issue of repeat prescription (principal); G89.29 Other chronic pain; I10 Essential (primary) hypertension; J43.9 Emphysema, unspecified; M81.0 Age-related osteoporosis without current pathological fracture; G43.909 Migraine, unspecified, not intractable, without status migrainosus; Z79.891 Long term (current) use of opiate analgesic; Z88.6 Allergy status to analgesic agent; Z88.5 Allergy status to narcotic agent; Z88.8 Allergy status to other drugs, medicaments and biological substances ==

== ENCOUNTER → 2020-05-11 | Outpatient (CLI) | payer OTHER ==
[2020-05-11 10:49] LABS: CREATININE 0.7 mg/dL (0.6-1.0)
== END ==
LOC: CAT 08:49
PROVIDERS: ATTEND Internal Medicine Pulmonary Disease
DX: J43.9 Emphysema, unspecified (principal); J47.9 Bronchiectasis, uncomplicated; Z01.812 Encounter for preprocedural laboratory examination

== ENCOUNTER 2020-05-13 18:20 | Emergency (ER) | payer OTHER ==
[~2020-05-13] VITALS: Ht 157.5 cm; Wt 45.4 kg
[2020-05-13 19:52] LABS: ALBUMIN 3.3 g/dL (3.4-5.0); AMYLASE 48 U/L (25-115); ANION GAP 6 mmol/L (7-16); BUN 11 mg/dL (7-18); CHLORIDE 102 mmol/L (98-107); CO2 29 mmol/L (21-32); CREATININE 0.6 mg/dL (0.6-1.0); DIRECT BILIRUBIN < 0.1 mg/dL (<0.1-0.2); GLUCOSE 107 mg/dL (74-106); LIPASE 41 U/L (73-393); MAGNESIUM 1.6 mg/dL (1.8-2.4); PHOSPHORUS 2.9 mg/dL (2.6-4.7); POTASSIUM 3.9 mmol/L (3.5-5.1); SGOT 17 U/L (15-37); SGPT 22 U/L (14-59); SODIUM 137 mmol/L (136-145); TOTAL BILIRUBIN 0.3 mg/dL (0.2-1.0); TOTAL PROTEIN 7.5 g/dL (6.4-8.2); TROPONIN-I <0.06 ng/mL (<0.06)
[2020-05-13 20:02] LABS: CALCIUM 8.9 mg/dL (8.5-10.1)
[2020-05-13] MEDS ORDERED: NAPROSYN500 MG PO (20:54)
[2020-05-13 21:06] VITALS: BP 138/74
--- NOTE | 2020-05-14 14:49 | EKG ---
[address] [address] ELECTROCARDIOGRAM REPORT Name: JAMES LAMB Room #: DEP [facility]#: [id number] Admission: 05/13/20 Attend Phys: Discharge: 05/13/20 Date of : 56 Report #: [id number] 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 : 1960 Requested By: Nikolas Asher Order Number: [id number] MD: Adam Rodriguez Measurements Intervals [place] Rate: 117 P: 81 SC: 169 QRS: 80 QRSD: 72 T: 48 QT: 304 QTc: 424 Interpretive Statements Sinus tachycardia Biatrial enlargement Minimal ST depression, lateral leads Compared to ECG 03/17/2019 00:15:38 Atrial abnormality now present ST (T wave) deviation now present Poor R-wave progression no longer present Electronically Signed On 05-14-2020 14:49:06 IMPROVEMENT SPECIALIST by Adam Rodriguez [email or web address] <ELECTRONICALLY SIGNED> By: Adam Rodriguez MD, FACC 05/14/20 1449 30 30 Adam Rodriguez MD, [facility] /EPI
== END 2020-05-13 21:08 | disposition home or self-care (01) ==
LOC: ER 18:20
PROVIDERS: Emergency Medicine
DX: R09.1 Pleurisy (principal); J44.9 Chronic obstructive pulmonary disease, unspecified; I10 Essential (primary) hypertension; K21.9 Gastro-esophageal reflux disease without esophagitis; Z90.89 Acquired absence of other organs; G43.909 Migraine, unspecified, not intractable, without status migrainosus; F41.9 Anxiety disorder, unspecified; Z98.51 Tubal ligation status; Z90.711 Acquired absence of uterus with remaining cervical stump; F31.9 Bipolar disorder, unspecified; Z79.899 Other long term (current) drug therapy; Z88.6 Allergy status to analgesic agent; Z88.8 Allergy status to other drugs, medicaments and biological substances; Z88.5 Allergy status to narcotic agent; Z87.891 Personal history of nicotine dependence

== ENCOUNTER → 2020-06-16 | Outpatient (CLI) | payer OTHER ==
[~2020-06-16] MED LIST changes: +NAPROSYN500 MG PO
[2020-06-16 13:29] LABS: BE(vivo) -0.9 mmol/L (-2 to +3); HCO3 23.7 mmol/L (22.0-26.0); PCO2 38.7 mmHg (35.0-45.0); PO2 95.3 mmHg (80.0-100.0); pH 7.404 (7.360-7.450); sO2 97.3 % (92.0-98.0)
== END ==
LOC: RAD 12:35
PROVIDERS: ATTEND Internal Medicine Pulmonary Disease
DX: J44.0 Chronic obstructive pulmonary disease with (acute) lower respiratory infection (principal); R06.02 Shortness of breath

== ENCOUNTER → 2020-07-03 | Outpatient (CLI) | payer OTHER | LOC: TELEPC 06:50 → PAIN 07:39 | PROVIDERS: ATTEND Anesthesiology Pain Medicine | DX: Z76.0 Encounter for issue of repeat prescription (principal); I10 Essential (primary) hypertension; J43.9 Emphysema, unspecified; M81.0 Age-related osteoporosis without current pathological fracture; K59.03 Drug induced constipation; G43.909 Migraine, unspecified, not intractable, without status migrainosus; Z86.69 Personal history of other diseases of the nervous system and sense organs; Z87.891 Personal history of nicotine dependence; Z88.8 Allergy status to other drugs, medicaments and biological substances; Z79.899 Other long term (current) drug therapy ==

== ENCOUNTER → 2020-07-31 | Outpatient (CLI) | payer OTHER ==
[~2020-07-31] MED LIST changes: +TRELEGY ELLIPT1 EACH INH
--- NOTE | 2020-08-04 08:18 | HPC ---
[facility] [address] [address] PAIN MANAGEMENT CONSULTATION Name: JAMES LAMB Room #: REG [facility] M.Kate.#: [id number] Admission: 07/31/20 Attend Phys: Julia Harrington Discharge: Date of : 56 Report #: [id number] THIS REPORT FOR: cc: Jenna Olea MD, Karla L. MD Hocker,Julia Pompa DATE OF SERVICE: 07/31/2020 CHIEF COMPLAINT: Low back pain. HISTORY OF PRESENT ILLNESS: This is a telemedicine appointment that I am speaking with from 09:15 to 09:30 via the telephone that the patient has consented for due to COVID outbreak and her pulmonary status. She is not fully vaccinated yet. This is a 60-year-old female who today is reporting her pain score of 6/10. She believes her pain is worse in her low back, but is not having radicular symptoms today. Typically, her pain does radiate down her right leg. Overall, she believes she is doing reasonably well with her current hydrocodone dose. She reports averaging 2 tablets a day, but on her more painful day, she does take her third hydrocodone. The patient has been complaining today of a portable "ventilator" that she was given to use at nighttime for her COPD. She continues to be on 6 liters nasal cannula during the day. She reports that device caused her much difficulty and she has been back to using only her nasal cannula at nighttime. The patient has received her first COVID vaccine and is scheduled for her second Pfizer dose this Monday. ALLERGIES: DILANTIN, GEODON, ASPIRIN, TEGRETOL, CODEINE, HYDROMORPHONE. CURRENT LIST OF MEDICATIONS: Meloxicam, hydrocodone, Colace, Benadryl, hydrochlorothiazide, Ana María, Movantik, Flexeril, losartan, Linzess, Lamictal, Fosamax, Cogentin, omeprazole, Risperdal, Fioricet, alprazolam, benzonatate, oxcarbazepine and amlodipine. PQRS: She has a history of osteoarthritis in her spine. Denies any rheumatoid arthritis. Pain score is 6-7/10 today. The patient is not on any blood thinners. Her functional assessment is 30/70. She has a history of hypertension and is not on any blood thinners. She is a former smoker and does not use alcohol or recreational drugs. Her risk assessment is low and she does have an opioid signed contract on the chart. Vital signs and weight were deferred due to a telemedicine appointment. This is a review of systems due to a telemedicine appointment. She is alert and oriented, answering all my questions appropriately, rating her pain score as 6-7/10 today. Lung sounds are crackly through the [place] [address] PAIN MANAGEMENT CONSULTATION Name: JAMES LAMB Room #: REG CLI M.Kate.#: [id number] Admission: 07/31/20 Attend Phys: Julia Harrington Discharge: Date of : 56 Report #: [id number] coughing. She reports productive cough on 6 liters nasal cannula. The patient reports pain in her lower back with no radicular symptoms presently. IMPRESSION: 1. Chronic pain with complex medical management utilizing scheduled opioid medications. 2. Hypertension. 3. Chronic obstructive pulmonary disease, on 6 liters nasal cannula. 4. Emphysema. 5. Migraine headaches. 6. Seizure history. 7. Osteoporosis. 8. Osteoarthritis. 9. Opioid-induced constipation. We reviewed the fact that opiate medications are being used to provide analgesia adequate to support activities of daily living, not attempting to achieve a specific pain score on the 0-10 Visual Analog Scale. The current opiate medications are providing sufficient analgesia to allow the patient to participate in activities of daily living. The patient is not exhibiting any aberrant behavior suggestive of drug diversion. The patient is not having any adverse reactions to medications. The patient is not suffering from daytime somnolence or mental acuity changes. The patient is managing opiate-induced constipation with appropriate zqii-cor-ldeytye agents and dietary considerations. The patient was counseled on concern for caution with operating a motor vehicle while using opiate medications. According to the prescription monitoring system, the patient is filling appropriately. Her morphine milliequivalent is 22 MME per day. She does fill appropriately with one pharmacy only. PLAN: 1. We discussed treatment options with the patient today. At this time, we will continue her hydrocodone 7.5/325, #75 tablets. This will be sent electronically by Dr. Xu Fowler to her [facility]'s pharmacy. 2. The patient is scheduled to have her second COVID vaccine on Monday. I think that it will be prudent for her to come to an appointment in August to see Dr. Fowler. We have been keeping her at home, trying to keep her safe from the COVID outbreak due to her pulmonary status. She will be fully vaccinated at that time. The patient is agreeable. We discussed coming in a wheelchair and even enabling her to go out our side after her appointment for limited exposure. The patient will call for an appointment to be scheduled. Time spent for this telemedicine appointment in consultation, reviewing recent studies and clinical notes and medical documentation are 15 minutes discussing possible treatment options. [address] [place] [address] PAIN MANAGEMENT CONSULTATION Name: JAMES LAMB Room #: REG [facility] Kimball.#: [id number] Admission: 07/31/20 Attend Phys: Julia Harrington Discharge: Date of : 56 Report #: [id number] Time spent in preparation for appointment reviewing prescription monitoring system reviewing previous records and proposed treatment options, reviewing current medications 4 minutes. Time spent preparing and sending electronic prescriptions with collaborating physician and documentation of visit and plan of care 4 minutes. Total time spent 23 minutes. <ELECTRONICALLY SIGNED> By: Julia Harrington 08/04/20 0818 1113 1258 Julia Harrington /nt
== END ==
LOC: TELEPC 06:55 → PAIN 13:37
PROVIDERS: ATTEND Clinical Nurse Specialist Adult Health
DX: M54.5 Low back pain (principal); G89.29 Other chronic pain; I10 Essential (primary) hypertension; J43.9 Emphysema, unspecified; M81.0 Age-related osteoporosis without current pathological fracture; M19.90 Unspecified osteoarthritis, unspecified site; K59.03 Drug induced constipation; G43.909 Migraine, unspecified, not intractable, without status migrainosus; Z88.8 Allergy status to other drugs, medicaments and biological substances; Z79.899 Other long term (current) drug therapy

== ENCOUNTER → 2020-08-05 | Outpatient (CLI) | payer OTHER | LOC: LAB 09:50 | PROVIDERS: ATTEND Internal Medicine | DX: Z01.812 Encounter for preprocedural laboratory examination (principal); Z20.822 Contact with and (suspected) exposure to COVID-19 ==

== ENCOUNTER → 2020-08-28 | Outpatient (CLI) | payer OTHER ==
[~2020-08-28] VITALS: Ht 157.5 cm; Wt 43.5 kg
[2020-08-28 10:49] VITALS: BP 113/75
--- NOTE | 2020-08-28 10:52 | NUR ---
Pain Clinic Assessment: 1. History of Osteoarthritis: SPINE History of Rheumatoid Arthritis: DENIES 2. Height: 5 ft. 2 in. 157.5 cm. Weight: 96.0 lb. oz. 43.545 kg. Patient's BMI: 17.6 3. Vital Signs: BP: 113/75 Pulse: 108 Resp: 16 Temp: 02 Sat: 100 ECG Mon: 4. Pain Intensity: 7 5. Fall Risk: Dizziness: N Needs help standing or walking: N Fallen in the last 3 months: N Fall risk comments: 6. Patient on Blood Thinner: None 7. History of Hypertension: Y 8. Opioid Therapy greater than 6 weeks: Y Opiate Contract Signed: 01/18/17 9. Risk Assessment Tool Provided: LOW RISK 3 10. Functional Assessment Tool: 11. Recreational Drug Use: Never Drug Type: Tobacco Use: Former Smoker Tobacco Type: Amount or Packs/day: How Many Years: Alcohol Use: Past use Frequency: Quant:
== END ==
LOC: PAIN 07:12
PROVIDERS: ATTEND Anesthesiology Pain Medicine
DX: G89.29 Other chronic pain (principal); I10 Essential (primary) hypertension; J43.9 Emphysema, unspecified; G43.909 Migraine, unspecified, not intractable, without status migrainosus; G40.909 Epilepsy, unspecified, not intractable, without status epilepticus; M19.90 Unspecified osteoarthritis, unspecified site; Z79.891 Long term (current) use of opiate analgesic

== ENCOUNTER → 2020-10-23 | Outpatient (CLI) | payer OTHER ==
[~2020-10-23] VITALS: Ht 157.5 cm; Wt 41.5 kg
[2020-10-23 09:07] VITALS: BP 141/79
--- NOTE | 2020-10-23 09:25 | NUR ---
Pain Clinic Assessment: 1. History of Osteoarthritis: SPINE History of Rheumatoid Arthritis: DENIES 2. Height: 5 ft. 2 in. 157.5 cm. Weight: 91.4 lb. oz. 41.459 kg. Patient's BMI: 16.7 3. Vital Signs: BP: 141/79 Pulse: 123 Resp: 24 Temp: 02 Sat: 99 ECG Mon: 4. Pain Intensity: 7 5. Fall Risk: Dizziness: N Needs help standing or walking: N Fallen in the last 3 months: Y Fall risk comments: FELL OUT OF BED 2.5 MONTHS AGO, NO INJURY 6. Patient on Blood Thinner: Clopidogrel Bisulf(Plavix 7. History of Hypertension: Y 8. Opioid Therapy greater than 6 weeks: Y Opiate Contract Signed: 01/18/17 9. Risk Assessment Tool Provided: LOW RISK 3 10. Functional Assessment Tool: 11. Recreational Drug Use: Never Drug Type: Tobacco Use: Former Smoker Tobacco Type: Amount or Packs/day: How Many Years: Alcohol Use: Past use Frequency: Quant:
== END ==
LOC: PAIN 06:59
PROVIDERS: ATTEND Anesthesiology Pain Medicine
DX: G89.29 Other chronic pain (principal); M25.561 Pain in right knee; M25.562 Pain in left knee; M54.9 Dorsalgia, unspecified; G43.909 Migraine, unspecified, not intractable, without status migrainosus; I10 Essential (primary) hypertension; K21.9 Gastro-esophageal reflux disease without esophagitis; J43.9 Emphysema, unspecified; Z90.710 Acquired absence of both cervix and uterus; Z88.5 Allergy status to narcotic agent; Z88.8 Allergy status to other drugs, medicaments and biological substances; Z79.891 Long term (current) use of opiate analgesic; Z79.899 Other long term (current) drug therapy; Z98.890 Other specified postprocedural states; M81.0 Age-related osteoporosis without current pathological fracture; Z87.891 Personal history of nicotine dependence

== ENCOUNTER → 2020-12-18 | Outpatient (CLI) | payer OTHER ==
[~2020-12-18] VITALS: Ht 157.5 cm; Wt 43.6 kg
[2020-12-18 09:32] VITALS: BP 156/91
--- NOTE | 2020-12-18 09:33 | NUR ---
Pain Clinic Assessment: 1. History of Osteoarthritis: SPINE History of Rheumatoid Arthritis: DENIES 2. Height: 5 ft. 2 in. 157.5 cm. Weight: 96.2 lb. oz. 43.636 kg. Patient's BMI: 17.6 3. Vital Signs: BP: 156/91 Pulse: 101 Resp: 16 Temp: 02 Sat: 97 ECG Mon: 4. Pain Intensity: 4-8 5. Fall Risk: Dizziness: Y Needs help standing or walking: N Fallen in the last 3 months: N Fall risk comments: FELL OUT OF BED 2.5 MONTHS AGO, NO INJURY 6. Patient on Blood Thinner: Clopidogrel Bisulf(Plavix 7. History of Hypertension: Y 8. Opioid Therapy greater than 6 weeks: Y Opiate Contract Signed: 01/18/17 9. Risk Assessment Tool Provided: LOW RISK 3 10. Functional Assessment Tool: 11. Recreational Drug Use: Never Drug Type: Tobacco Use: Former Smoker Tobacco Type: Amount or Packs/day: How Many Years: Alcohol Use: Past use Frequency: Quant:
== END ==
LOC: PAIN 08:16
PROVIDERS: ATTEND Clinical Nurse Specialist Adult Health
DX: I10 Essential (primary) hypertension (principal); J43.9 Emphysema, unspecified; G43.909 Migraine, unspecified, not intractable, without status migrainosus; M81.0 Age-related osteoporosis without current pathological fracture; Z79.899 Other long term (current) drug therapy; Z79.891 Long term (current) use of opiate analgesic

== ENCOUNTER → 2021-02-12 | Outpatient (CLI) | payer OTHER ==
[~2021-02-12] VITALS: Ht 157.5 cm; Wt 45.3 kg
[2021-02-12 09:26] VITALS: BP 141/80
--- NOTE | 2021-02-12 09:42 | NUR ---
Pain Clinic Assessment: 1. History of Osteoarthritis: SPINE History of Rheumatoid Arthritis: DENIES 2. Height: 5 ft. 2 in. 157.5 cm. Weight: 99.8 lb. oz. 45.269 kg. Patient's BMI: 18.2 3. Vital Signs: BP: 141/80 Pulse: 103 Resp: 22 Temp: 02 Sat: 100 ECG Mon: 4. Pain Intensity: 8 5. Fall Risk: Dizziness: Y Needs help standing or walking: N Fallen in the last 3 months: N Fall risk comments: PATIENT STATES SHE HAS BEEN HAVING "BLACKOUTS" -STATES THIS WAS 6 MONTHS AGO 6. Patient on Blood Thinner: Clopidogrel Bisulf(Plavix 7. History of Hypertension: Y 8. Opioid Therapy greater than 6 weeks: Y Opiate Contract Signed: 01/18/17 9. Risk Assessment Tool Provided: LOW RISK 3 10. Functional Assessment Tool: 11. Recreational Drug Use: Never Drug Type: Tobacco Use: Former Smoker Tobacco Type: Amount or Packs/day: How Many Years: Alcohol Use: Past use Frequency: Quant:
== END ==
LOC: PAIN 06:43
PROVIDERS: ATTEND Anesthesiology Pain Medicine
DX: G89.29 Other chronic pain (principal); M54.6 Pain in thoracic spine; M54.50 Low back pain, unspecified; I10 Essential (primary) hypertension; J44.9 Chronic obstructive pulmonary disease, unspecified; G43.801 Other migraine, not intractable, with status migrainosus; M81.0 Age-related osteoporosis without current pathological fracture; K59.03 Drug induced constipation; Z88.6 Allergy status to analgesic agent; Z79.899 Other long term (current) drug therapy; Z88.8 Allergy status to other drugs, medicaments and biological substances; Z90.710 Acquired absence of both cervix and uterus; Z87.891 Personal history of nicotine dependence

== ENCOUNTER → 2021-04-21 | Outpatient (CLI) | payer OTHER ==
[~2021-04-21] VITALS: Ht 157.5 cm; Wt 48.3 kg
[2021-04-21 09:39] VITALS: BP 125/69
--- NOTE | 2021-04-21 09:49 | NUR ---
Pain Clinic Assessment: 1. History of Osteoarthritis: SPINE History of Rheumatoid Arthritis: DENIES 2. Height: 5 ft. 2 in. 157.5 cm. Weight: 106.4 lb. oz. 48.263 kg. Patient's BMI: 19.5 3. Vital Signs: BP: 125/69 Pulse: 107 Resp: 14 Temp: 02 Sat: 99 ECG Mon: 4. Pain Intensity: 9 5. Fall Risk: Dizziness: N Needs help standing or walking: N Fallen in the last 3 months: N Fall risk comments: PATIENT STATES SHE HAS BEEN HAVING "BLACKOUTS" -STATES THIS WAS 6 MONTHS AGO 6. Patient on Blood Thinner: Clopidogrel Bisulf(Plavix 7. History of Hypertension: Y 8. Opioid Therapy greater than 6 weeks: Y Opiate Contract Signed: 01/18/17 9. Risk Assessment Tool Provided: LOW RISK 3 10. Functional Assessment Tool: 40/ 11. Recreational Drug Use: Never Drug Type: Tobacco Use: Former Smoker Tobacco Type: Amount or Packs/day: How Many Years: Alcohol Use: Past use Frequency: Quant:
== END ==
LOC: PAIN 06:56
PROVIDERS: ATTEND Clinical Nurse Specialist Adult Health
DX: G89.29 Other chronic pain (principal); M54.50 Low back pain, unspecified; M54.6 Pain in thoracic spine; J44.9 Chronic obstructive pulmonary disease, unspecified; M81.0 Age-related osteoporosis without current pathological fracture; K59.03 Drug induced constipation; Z99.81 Dependence on supplemental oxygen; Z87.891 Personal history of nicotine dependence; Z88.6 Allergy status to analgesic agent; Z88.8 Allergy status to other drugs, medicaments and biological substances; Z79.899 Other long term (current) drug therapy